=== PATIENT | male | born 2005 | race Two or more races ===

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

== ENCOUNTER 2024-07-11 10:39 | Emergency (ER) | payer MEDICAID, SELFPAY ==
[2024-07-11 10:45] VITALS: BP 152/84; PULSE 84; RESP 18; TEMP 36.7; O2SAT 99
--- NOTE | 2024-07-11 11:10 | ECG_ITS ---
Test Reason : ANXIOUS Blood Pressure : / mmHG Vent. Rate : 090 BPM Atrial Rate : 090 BPM P-R Int : 140 ms QRS Dur : 082 ms QT Int : 340 ms P-R-T Axes : 076 073 045 degrees QTc Int : 415 ms Normal sinus rhythm with sinus arrhythmia Early repolarization. No previous ECGs available Referred By: Samaria Mckeon Electronically Signed By:Bethel Godfrey
--- NOTE | 2024-07-11 11:20 | ED.PSYCH ---
HPI - Psych General Chief Complaint: Psychiatric Symptoms Stated Complaint: Crisis Time Seen by Provider: 07/11/24 10:54 Source: patient, family (mom) and legal executive (citizen of [place]) Mode of arrival: ambulatory Limitations: language barrier (citizen of [place] speaking) History of Present Illness ED Provider: ZANE MALDONADO PA-C HPI Narrative: 19 year old male with pmhx significant for anxiety presents to the ED today with his mother for evaluation of increased anxiety x24 hours. Admits he was recently hospitalized at [facility] (06/16/24) where he was prescribed anxiety medications. Reports feeling fine while taking the medication, prompting him to self discontinue his anxiety medications x2 days. He cannot recall the name of this medication. Admits to worsening anxiety. Denies SI/HI. Denies AH/VH/TH. Denies etoh use. Denies elicit substance use. Denies any physical complaints at present. Related Data Allergies Allergy/AdvReac Type Severity Reaction Status Date / Time shrimp Allergy Angioedema Verified 07/11/24 10:52 Review of Systems Review of Systems: Yes all other systems are reviewed and are negative [facility] Past Medical History Attestation statement: The following information was validated with the patient. Source: old records reviewed and nursing notes reviewed Social History Social History Smoked in Last 30 Days: No Use of substances other than those prescribed or required for medical reasons: No Advance Directives: No Advance Directives Information Provided: Yes Do you have a plan to hurt others: No Plan Physical Exam Vital Signs: Vital Signs: Last Vital Signs Temp 98.0 F 07/11/24 10:45 Pulse 75 07/11/24 11:37 Resp 16 07/11/24 11:37 BP 143/86 H 07/11/24 11:37 Pulse Ox 98 07/11/24 11:37 O2 Del Method Room Air 07/11/24 11:37 BMI result Body Mass Index 20.0 hypertensive, vitals otherwise wnl. General: Well appearing, in no acute distress. Skin: Warm, dry, intact. No rashes or lesions. Head: Normocephalic, atraumatic. EENT: Hearing is intact b/l. Conjunctiva clear. PERRLA. EOM intact. Moist mucous membranes.? Neck: Supple without LAD Cardiac: Chest wall symmetric. RRR Lungs: Normal respiratory effort without accessory muscle use. CTA bilaterally Abdomen: Soft, non-tender, non-distended. No rebound tenderness or guarding. Positive BS x4. Back: No midline spinous or paraspinal tenderness. No step off deformity. Ext: Upper and lower extremities atraumatic, without tenderness, deformity, swelling or erythema. Full ROM throughout. Neuro: AOx3. Normal speech. CN 2-12 grossly intact. Strength 5/5 intact throughout. Ambulating with steady gait. Psych: Appropriate mood and affect. Responds appropriately to questions. Course Course Course Narrative: 1205 -- On chart review, patient was prescribed benztropine 1mg daily, haloperidol 10 mg q.h.s., lithium 600 mg q.h.s., Zoloft 25 mg daily. > EKG showing normal sinus rhythm with sinus arrhythmia, rate of 90 beats per minute, QT 340, QTC 415, no acute ischemic changes or ST elevations. > CBC without leukocytosis or left shift. Slight normocytic anemia, H&H well above transfusion threshold. Chemistry without acute electrolyte abnormality requiring intervention. No DELIA. Slight elevation in AST/ALT. Lipase WNL. UA negative for infection. Urine toxicology negatve. Ethanol undetectable. Salicylates undetectable. > at this time, patient is medically cleared for care team evaluation. Physician observation initiated. 1354 -- Teresita from care team evaluated patient. Patient currently has a psychiatrist. He is currently being prescribed antipsychotic, was off these for 2 days and began taking them again this morning. Reports confusion as to why they have not started working yet. At this time we advised him to continue taking all of his home medications as prescribed. Yasmin will be giving him a referral to [facility] along with a 3 day follow-up with [facility]. Mom and patient feel comfortable with this plan. continues to deny SI/HI. At this time I feel patient is stable for discharge home with outpatient follow up. Patient has remained stable throughout ED visit today. Discussed worrisome signs and symptoms and when to return to the ED. All questions answered at this time. Patient is agreeable with disposition and stable for discharge. Observation care revealed that the patient does not meet medical necessity for hospitalization. Final disposition discussed with the patient. The patient completed observation care at 1355, total time in observation care was 2 hours. Medications Administered Discontinued Medications Generic Name Dose Route Start Last Admin Trade Name Deondre PRN Reason Stop Dose Admin Lorazepam 0.5 mg 07/11/24 12:52 07/11/24 13:11 Lorazepam 0.5 Mg Tablet PO 07/11/24 12:53 0.5 mg ONCE ONE Administration Medical Decision Making Medical Decision Making [facility] Narrative: 19 year old male with pmhx significant for anxiety presents to the ED today with his mother for evaluation of increased anxiety x24 hours. Patient is slightly hypertensive to 143/86. Vitals otherwise WNL. He is nontoxic-appearing and in no acute distress. Appears slightly anxious on exam, tapping his foot. Exam is nonfocal. ambulating with steady gait. rrr. lungs clear. skin w/d/i. no rashes, abrasions or lacerations. Differential diagnosis includes anxiety, depression, medication non compliance, anemia, electrolyte abnormality, dehydration. Plan for medical clearance and care team evaluation. Differential Diagnosis Differential Diagnoses: The differential diagnosis associated with the presentation includes As above Admission/Observation Consideration of admission/observation: Escalation of care including admission/observation considered Lab Data [facility] Lab Attestation statement: I reviewed the patient's lab results. As above 07/11/24 11:32 07/11/24 11:32 Labs: Lab Results 07/11/24 Range/Units 11:32 WBC 7.3 (4.8-10.8) X10*3/uL RBC 5.08 (4.60-5.80) X10*6/uL Hgb 13.6 L (14.0-18.0) g/dl Hct 41.5 L (42.0-52.0) % MCV 81.7 (80.0-98.0) fL MCH 26.8 L (27.0-33.0) pg MCHC 32.8 (31.0-36.0) g/dl RDW 14.2 (11.0-16.0) % Plt Count 325 (160-400) X10*3/uL MPV 8.9 L (9.4-12.4) fL Immature Gran % (Auto) 0.3 (0.0-0.4) % Neut % (Auto) 69.3 (45-73) % Lymph % (Auto) 21.0 (20-40) % [place] % (Auto) 7.3 (2-11) % Eos % (Auto) 1.6 (0-4) % Baso % (Auto) 0.5 (0-2) % Lymph # (Auto) 1.5 (1.2-4.9) X10*3/uL [place] # (Auto) 0.5 (0.1-1.2) X10*3/uL Eos # (Auto) 0.1 (0.0-0.4) X10*3/uL Baso # (Auto) 0.0 (0.0-0.2) X10*3/uL Abs Immat Gran (auto) 0.02 (0.00-0.03) X10*3/uL Absolute Neuts (auto) 5.1 (2.0-8.3) x10*3/uL Absolute Nucleated RBC 0.000 (0.0-0.012) X10*3/uL Nucleated RBC % (auto) 0.0 (0.0-0.2) /100WBC Sodium 140 (135-145) mmol/L Potassium 4.7 (3.3-5.1) mmol/L Chloride 107 (96-108) mmol/L Carbon Dioxide 26 (22-29) mmol/L Anion Gap 12 (12-20) BUN 10 (9-16) mg/dL Creatinine 0.82 (0.5-1.4) mg/dL Estim Creat Clear Calc 132.3 Estimated GFR > 60 Random Glucose 103 (60-115) mg/dL Calcium 10.4 H (8.4-10.2) mg/dL Magnesium 2.5 (1.6-2.6) mg/dL Total Bilirubin 0.3 (0.0-1.0) mg/dL AST 38 H (5-37) U/L ALT 65 H (0-40) U/L Alkaline Phosphatase 72 (39-117) U/L Total Protein 8.4 H (6.5-8.0) g/dL Albumin 4.9 (3.5-5.0) g/dL Lipase 11 (8-78) U/L Urine Color Yellow Urine Appearance Clear Urine pH 8.5 (5.0-9.0) Ur Specific [place] 1.010 (1.005-1.025) Urine Protein Negative (Neg-Trace) mg/dL Urine Glucose (UA) Negative (Negative) mg/dL Urine Ketones Negative (Negative) mg/dL Urine Blood Negative (Negative) Urine Nitrite Negative (Negative) Ur Leukocyte Esterase Negative (Negative) Salicylates < 5.0 L (15-30) mg/dL Urine Opiates Screen Not Detected (Not Detect) Ur Buprenorphine Scrn Not Detected (Not Detect) ng/mL Ur Oxycodone Screen Not Detected (Not Detect) ng/mL Urine Methadone Screen Not Detected (Not Detect) ng/mL Urine Fentanyl Screen Not Detected (Not Detect) Acetaminophen < 3 (<30) mcg/mL Ur Barbiturates Screen Not Detected (Not Detect) Ur Phencyclidine Scrn Not Detected (Not Detect) Ur Amphetamines Screen Not Detected (Not Detect) U Benzodiazepines Scrn Not Detected (Not Detect) Urine Cocaine Screen Not Detected (Not Detect) U Marijuana (THC) Screen Not Detected (Not Detect) Ethyl Alcohol < 10 mg/dL Independent Historian Clinical information obtained from an independent historian. History obtained from or confirmed by: Parent (Mom) Chronic Conditions Patient?s care impacted by: Other (Anxiety) Social Determinants Patient?s care significantly limited by Social Determinants of Health including: Other Social Determinant of Health Critical Care Time Critical Care Time Critical Care Time: No Discharge Plan Discharge Clinical Impression: Anxiety Patient Disposition: Home, Self-Care Instructions: Anxiety (ED) Additional Instructions: You were evaluated by care team today. You are being discharged home with outpatient follow-up. Please take all of your home medications as prescribed. Do not miss any doses. The care team provided you with a referral to [facility]. Call them for follow-up. They will not call you. Follow up with your psychiatrist as scheduled. Please return with new or worsening symptoms. In the case of an emergency call 911. Interventions: [place]-Suicide Risk Severity Scale Last Done: 07/11/24 11:09 Print Language: Uzbek
[2024-07-11 11:37] VITALS: BP 143/86; PULSE 75; RESP 16; O2SAT 98
[2024-07-11 11:39] LABS: MANUAL DIFF FLAG NO
[2024-07-11 11:42] LABS: Appearance Urine Clear; Color Urine Yellow; Glucose Urine UA Negative (Negative); Leukocyte Esterase Urine Negative (Negative); Nitrite Urine Negative (Negative); PH 8.5 (5.0-9.0); Urine Blood Negative (Negative); Urine Ketones Negative (Negative); Urine Protein Negative (Neg-Trace)
[2024-07-11 11:44] LABS: Basophils Percent Auto 0.5 % (0-2); Eosinophils Absolute Auto 0.1 X10*3/uL (0.0-0.4); Eosinophils Percent Auto 1.6 % (0-4); Hematocrit 41.5 % (42.0-52.0); Hemoglobin 13.6 g/dl (14.0-18.0); Imm Gran Abs Auto 0.02 X10*3/uL (0.00-0.03); Imm Gran Pct Auto 0.3 % (0.0-0.4); Lymphocytes Absolute Auto 1.5 X10*3/uL (1.2-4.9); Mean Corpuscular HGB Conc 32.8 g/dl (31.0-36.0); Mean Corpuscular Hemoglobin 26.8 pg (27.0-33.0); Mean Corpuscular Volume 81.7 fL (80.0-98.0); Mean Platelet Volume 8.9 fL (9.4-12.4); Monocytes Absolute Auto 0.5 X10*3/uL (0.1-1.2); Monocytes Percent Auto 7.3 % (2-11); Neutrophils Absolute Auto 5.1 x10*3/uL (2.0-8.3); Neutrophils Percent Auto 69.3 % (45-73); Platelet Count 325 X10*3/uL (160-400); Red Blood Count 5.08 X10*6/uL (4.60-5.80); Red Cell Distribution Width 14.2 % (11.0-16.0); White Blood Count 7.3 X10*3/uL (4.8-10.8)
[2024-07-11 12:03] LABS: Alanine Aminotransferase 65 U/L (0-40); Albumin Level 4.9 g/dL (3.5-5.0); Alkaline Phosphatase 72 U/L (39-117); Anion Gap 12 (12-20); Aspartate Amino Transferase 38 U/L (5-37); Bilirubin Total 0.3 mg/dL (0.0-1.0); Blood Urea Nitrogen 10 mg/dL (9-16); Calcium 10.4 mg/dL (8.4-10.2); Carbon Dioxide 26 mmol/L (22-29); Chloride 107 mmol/L (96-108); Creatinine Clr Calc Pharmacy 132.3; Estimated Glomerular Filt Rate > 60; Ethanol < 10 mg/dL; Glucose Random 103 mg/dL (60-115); Lipase 11 U/L (8-78); Magnesium 2.5 mg/dL (1.6-2.6); Potassium 4.7 mmol/L (3.3-5.1); Sodium 140 mmol/L (135-145); Total Protein 8.4 g/dL (6.5-8.0)
[2024-07-11 12:04] LABS: Acetaminophen LAB < 3 mcg/mL (<30); Salicylate < 5.0 mg/dL (15-30)
[2024-07-11 12:07] LABS: Amphetamine Screen Urine Not Detected (Not Detect); Barbiturates, Urine Not Detected (Not Detect); Benzodiazepines Screen Urine Not Detected (Not Detect); Buprenorphine Scr Not Detected (Not Detect); Cannabinoid Screen Urine Not Detected (Not Detect); Cocaine Screen Urine Not Detected (Not Detect); Fentanyl, urine Not Detected (Not Detect); Methadone Screen, Urine Not Detected (Not Detect); Opiate Screen Urine Not Detected (Not Detect); Oxycodone Screen Urine Not Detected (Not Detect); Phencyclidine Screen Urine Not Detected (Not Detect)
[2024-07-11] MEDS: LORazepam 0.5 MG TABLET PO (13:11)
[2024-07-11 14:11] VITALS: BP 143/86; PULSE 75; RESP 16; TEMP 36.7; O2SAT 98
--- NOTE | 2024-07-11 14:54 | MHC.CARE ---
Patient evaluated by the CARE Team, he does not require an inpatient psychiatric admission at this time, will be referred to outpatient services through [facility]. ED provider, Samaria Mckeon updated and in agreement with plan.
== END 2024-07-11 14:12 | disposition home or self-care (01) ==
PROVIDERS: Physician Assistant Medical; Emergency Provider Emergency Medicine
DX: F41.1 Generalized anxiety disorder (principal); F43.0 Acute stress reaction; I49.8 Other specified cardiac arrhythmias; Z51.81 Encounter for therapeutic drug level monitoring; Z79.899 Other long term (current) drug therapy
CPT/HCPCS: 36415; 80053; 80143; 80179; 80307; 81003; 83690; 83735; 85025; 93005; 99284; 99285; S9485

== ENCOUNTER → 2024-07-11 11:10 | Outpatient (BNV) | payer MEDICAID, SELFPAY | PROVIDERS: Emergency Provider Emergency Medicine; Visit Provider Internal Medicine Cardiovascular Disease | DX: I49.49 Other premature depolarization (principal) | CPT/HCPCS: 93010 ==

== ENCOUNTER 2024-07-19 14:35 | Outpatient (REF) | payer MEDICAID, SELFPAY ==
[2024-07-20 01:40] LABS: CT PCR NOT DETECTED (Not Detect.); NG PCR NOT DETECTED (Not Detect.)
== END 2024-07-19 14:36 | disposition home or self-care (01) ==
LOC: HO.CHCLNP 14:35
PROVIDERS: Visit Provider Family Medicine
DX: Z13.9 Encounter for screening, unspecified (principal)
CPT/HCPCS: 87491; 87591

== ENCOUNTER 2024-07-27 18:26 | Inpatient (IN) | payer MEDICAID, OTHER, SELFPAY ==
[2024-07-27 18:31] VITALS: BP 145/86; PULSE 84; RESP 16; TEMP 36.4; O2SAT 99; BMI 19.5
--- NOTE | 2024-07-27 18:35 | ED.PSYCH ---
HPI - Psych General Chief Complaint: Psychiatric Symptoms Stated Complaint: crisis Time Seen by Provider: 07/27/24 18:49 History of Present Illness HPI Narrative: See additional note from Dr. Carroll 07/27/24 Related Data Home Medications ?Medication ?Instructions ?Recorded ?Confirmed benztropine 1 mg tablet 1 mg PO DAILY 07/27/24 07/29/24 haloperidol 10 mg tablet 10 mg PO BEDTIME 07/27/24 07/27/24 lithium carbonate 600 mg capsule 600 mg PO BEDTIME 07/27/24 07/27/24 melatonin 3 mg tablet 3 mg PO BEDTIME PRN Insomnia 07/27/24 07/27/24 sertraline 25 mg tablet 25 mg PO DAILY 07/27/24 07/29/24 Allergies Allergy/AdvReac Type Severity Reaction Status Date / Time shrimp Allergy Angioedema Verified 07/27/24 18:40 [facility] Social History Social History Household Members: Spouse and Family Housing: Apartment Do you presently have visiting nurse or other home services: No Unable to assess alcohol history related to: Refusing to respond Patient Tobacco Use Status: Never used Tobacco Smoked in Last 30 Days: No e-Cigarette/Vaping Use: Never Used Patient Interested in Nicotine Replacement: No Patient Given Instructions on How to Stop Smoking: No Second Hand Smoke Exposure: No Use of substances other than those prescribed or required for medical reasons: No Currently Displaying Signs/Symptoms of Drug Intoxication Withdrawal: No Any prior treatment program specific to substance use: No Have you been hit, kicked, punched, or otherwise hurt by someone within the past year? If so, by whom?: No Do you feel safe in your current relationship?: No Is there a partner from a previous relationship who is making you feel unsafe now?: No Are you made to feel afraid or neglected: No Advance Directives: No Advance Directives Information Provided: Yes Do you have thoughts of harming others: None Do you have a plan to hurt others: No Plan Recently lost weight without trying: No Eating poorly because of decreased appetite: No Nutrition Risks: No Nutritional Risk Poor oral hygiene: No service: No Sexual orientation: Straight/Heterosexual Physical Exam Vital Signs: Vital Signs: Last Vital Signs Temp 97.7 F 07/30/24 07:37 Pulse 71 07/30/24 07:37 Resp 16 07/30/24 07:37 BP 142/76 H 07/30/24 07:37 Pulse Ox 98 07/30/24 07:37 O2 Del Method Room Air 07/30/24 07:37 BMI result Body Mass Index 19.5 Course Course Course Narrative: This is an RME performed by Zach Holloway CNP: Additional HPI, ROS, PE not included below will be deferred to primary provider. Patient is a 19-year-old male who presents emergency department with mother for evaluation, he states he wants to be voluntarily admitted to the hospital. He mentions seeing himself in a mirror as an alternative person, the reflexion in my eyes are black?, he can see the evil in other people's eyes . Denies SI, HI. For mother he has not been taking his medications for the past 2 days including; melatonin, lithium 600 mg daily, benztropine 1 mg daily, sertraline 25 mg daily, haloperidol 10 mg daily - patient states he stopped taking them because he was experiencing side effects including not wanting to have intercourse with his fiancee. He is coming from [facility] in [place]; I received a call from them, he was partially evaluated there for crisis, having tenriism preoccupations, auditory command hallucinations to harm his family, there was concern from them for possible substance usage, history of want a usage unclear whether there is anything else. Plan: Patient moved to [facility] for further evaluation, serum labs, care team evaluation Medications Administered Generic Name Dose Route Start Last Admin Trade Name Freq PRN Reason Stop Dose Admin Benztropine Mesylate 1 mg 07/28/24 09:00 07/30/24 08:16 Benztropine Mesylate 1 Mg Tablet PO 1 mg DAILY CELESTINA Administration Haloperidol 10 mg 07/27/24 22:15 07/29/24 20:49 Haloperidol 5 Mg Tablet PO 10 mg BEDTIME CELESTINA Administration [place] Carbonate 600 mg 07/27/24 22:15 07/29/24 20:49 [place] Carbonate 300 Mg Capsule PO 600 mg BEDTIME CELESTINA Administration Melatonin 3 mg 07/27/24 22:06 07/28/24 22:36 Melatonin 3 Mg Tablet PO 3 mg BEDTIME PRN Administration Insomnia Sertraline HCl 25 mg 07/28/24 09:00 07/30/24 08:16 Sertraline Hcl 25 Mg Tablet PO 25 mg DAILY CELESTINA Administration Discontinued Medications Generic Name Dose Route Start Last Admin Trade Name Deondre PRN Reason Stop Dose Admin Diphenhydramine HCl 50 mg 07/28/24 00:49 07/28/24 00:53 Diphenhydramine Hcl 25 Mg Capsule PO 07/28/24 00:50 50 mg ONCE ONE Administration Lorazepam 2 mg 07/28/24 00:49 07/28/24 00:53 Lorazepam 1 Mg Tablet PO 07/28/24 00:50 2 mg ONCE ONE Administration Lorazepam 1 mg 07/29/24 12:09 07/29/24 12:36 Lorazepam 1 Mg Tablet PO 07/29/24 12:10 1 mg ONCE ONE Administration Ziprasidone 20 mg 07/28/24 00:49 07/28/24 00:53 Ziprasidone 20 Mg Capsule PO 07/28/24 00:50 20 mg ONCE ONE Administration Medical Decision Making Lab Data 07/27/24 19:07 07/30/24 08:32 Labs: Lab Results 07/27/24 07/29/24 Range/Units 19:07 16:05 WBC 7.2 (4.8-10.8) X10*3/uL RBC 4.77 (4.60-5.80) X10*6/uL Hgb 12.7 L (14.0-18.0) g/dl Hct 38.4 L (42.0-52.0) % MCV 80.5 (80.0-98.0) fL MCH 26.6 L (27.0-33.0) pg MCHC 33.1 (31.0-36.0) g/dl RDW 13.5 (11.0-16.0) % Plt Count 284 (160-400) X10*3/uL MPV 8.9 L (9.4-12.4) fL Immature Gran % (Auto) 0.1 (0.0-0.4) % Neut % (Auto) 62.6 (45-73) % Lymph % (Auto) 26.5 (20-40) % [place] % (Auto) 9.6 (2-11) % Eos % (Auto) 0.8 (0-4) % Baso % (Auto) 0.4 (0-2) % Lymph # (Auto) 1.9 (1.2-4.9) X10*3/uL [place] # (Auto) 0.7 (0.1-1.2) X10*3/uL Eos # (Auto) 0.1 (0.0-0.4) X10*3/uL Baso # (Auto) 0.0 (0.0-0.2) X10*3/uL Abs Immat Gran (auto) 0.01 (0.00-0.03) X10*3/uL Absolute Neuts (auto) 4.5 (2.0-8.3) x10*3/uL Absolute Nucleated RBC 0.000 (0.0-0.012) X10*3/uL Nucleated RBC % (auto) 0.0 (0.0-0.2) /100WBC Sodium 141 (135-145) mmol/L Potassium 4.0 (3.3-5.1) mmol/L Chloride 110 H (96-108) mmol/L Carbon Dioxide 22 (22-29) mmol/L Anion Gap 13 (12-20) BUN 14 (9-16) mg/dL Creatinine 0.78 (0.5-1.4) mg/dL Estim Creat Clear Calc 131.8 Estimated GFR > 60 Random Glucose 134 H (60-115) mg/dL Calcium 9.8 (8.4-10.2) mg/dL Total Bilirubin 0.2 (0.0-1.0) mg/dL AST 26 (5-37) U/L ALT 22 (0-40) U/L Alkaline Phosphatase 66 (39-117) U/L Total Protein 8.2 H (6.5-8.0) g/dL Albumin 4.8 (3.5-5.0) g/dL Urine Color Yellow Urine Appearance Cloudy Urine pH 6.5 (5.0-9.0) Ur Specific [place] 1.015 (1.005-1.025) Urine Protein Negative (Neg-Trace) mg/dL Urine Glucose (UA) Negative (Negative) mg/dL Urine Ketones Negative (Negative) mg/dL Urine Blood Negative (Negative) Urine Nitrite Negative (Negative) Ur Leukocyte Esterase Trace H (Negative) Urine RBC 0-2 (0-2) /HPF Urine WBC 0-5 (0-5) /HPF Ur Squamous Epith Cells 0-2 (0-2) /HPF Urine Bacteria None Seen (None Seen) Hyaline Casts 0-2 (0-2) /LPF Urine Opiates Screen Not Detected (Not Detect) Ur Buprenorphine Scrn Not Detected (Not Detect) ng/mL Ur Oxycodone Screen Not Detected (Not Detect) ng/mL Urine Methadone Screen Not Detected (Not Detect) ng/mL Urine Fentanyl Screen Not Detected (Not Detect) Ur Barbiturates Screen Not Detected (Not Detect) Ur Phencyclidine Scrn Not Detected (Not Detect) Ur Amphetamines Screen Not Detected (Not Detect) U Benzodiazepines Scrn Not Detected (Not Detect) [place] < 0.10 L (0.60-1.20) mmol/L Urine Cocaine Screen Not Detected (Not Detect) U Marijuana (THC) Screen Not Detected (Not Detect) Ethyl Alcohol < 10 mg/dL Discharge Plan Discharge Clinical Impression: Delusion, Psychosis Patient Disposition: Still a Patient Discharge Date/Time: 07/29/24 22:09
--- NOTE | 2024-07-27 18:43 | PC.NURSE ---
pt reports he has not taken his meds x2 days because he felt like he does not need them any more and they make him not want to have intercourse with his GF
[2024-07-27 19:11] LABS: MANUAL DIFF FLAG NO
[2024-07-27 19:12] LABS: Basophils Percent Auto 0.4 % (0-2); Eosinophils Absolute Auto 0.1 X10*3/uL (0.0-0.4); Eosinophils Percent Auto 0.8 % (0-4); Hematocrit 38.4 % (42.0-52.0); Hemoglobin 12.7 g/dl (14.0-18.0); Imm Gran Abs Auto 0.01 X10*3/uL (0.00-0.03); Imm Gran Pct Auto 0.1 % (0.0-0.4); Lymphocytes Absolute Auto 1.9 X10*3/uL (1.2-4.9); Lymphocytes Percent Auto 26.5 % (20-40); Mean Corpuscular HGB Conc 33.1 g/dl (31.0-36.0); Mean Corpuscular Hemoglobin 26.6 pg (27.0-33.0); Mean Corpuscular Volume 80.5 fL (80.0-98.0); Mean Platelet Volume 8.9 fL (9.4-12.4); Monocytes Absolute Auto 0.7 X10*3/uL (0.1-1.2); Monocytes Percent Auto 9.6 % (2-11); Neutrophils Absolute Auto 4.5 x10*3/uL (2.0-8.3); Neutrophils Percent Auto 62.6 % (45-73); Platelet Count 284 X10*3/uL (160-400); Red Blood Count 4.77 X10*6/uL (4.60-5.80); Red Cell Distribution Width 13.5 % (11.0-16.0); White Blood Count 7.2 X10*3/uL (4.8-10.8)
[2024-07-27 19:22] LABS: Lithium < 0.10 mmol/L (0.60-1.20)
[2024-07-27 19:29] LABS: Alanine Aminotransferase 22 U/L (0-40); Albumin Level 4.8 g/dL (3.5-5.0); Alkaline Phosphatase 66 U/L (39-117); Anion Gap 13 (12-20); Aspartate Amino Transferase 26 U/L (5-37); Bilirubin Total 0.2 mg/dL (0.0-1.0); Blood Urea Nitrogen 14 mg/dL (9-16); Calcium 9.8 mg/dL (8.4-10.2); Carbon Dioxide 22 mmol/L (22-29); Chloride 110 mmol/L (96-108); Creatinine Clr Calc Pharmacy 131.8; Estimated Glomerular Filt Rate > 60; Ethanol < 10 mg/dL; Glucose Random 134 mg/dL (60-115); Sodium 141 mmol/L (135-145); Total Protein 8.2 g/dL (6.5-8.0)
--- NOTE | 2024-07-27 19:31 | PC.NURSE ---
[id number] allegedly the meds may be impeding the libido, and they wonder about changing medications, i dont want to presume about anything but under normal circumstance i would figure thats a your own psychiatrist or inpatient stay
--- NOTE | 2024-07-27 22:10 | ED_ITS ---
HPI - Psych General Chief Complaint: Psychiatric Symptoms Stated Complaint: crisis Time Seen by Provider: 07/27/24 18:49 Source: patient Mode of arrival: ambulatory Limitations: no limitations History of Present Illness ED Provider: Dr. Jackie Carroll HPI Narrative: Patient comes to the emergency room accompanied by family. According to the patient, patient is here because he has had mood swings and insomnia. Also, patient complaining of decreased libido secondary to his medications. Patient states that he is having a lot of relationship problems due to this. Also, patient states that he can see able in people's eyes and believes that he has a secret of the government . Patient denies SI or HI Related Data Home Medications ?Medication ?Instructions ?Recorded ?Confirmed benztropine 1 mg tablet 1 mg PO QAM 07/27/24 07/27/24 haloperidol 10 mg tablet 10 mg PO BEDTIME 07/27/24 07/27/24 lithium carbonate 600 mg capsule 600 mg PO BEDTIME 07/27/24 07/27/24 melatonin 3 mg tablet 3 mg PO BEDTIME PRN Insomnia 07/27/24 07/27/24 sertraline 25 mg tablet 25 mg PO QAM 07/27/24 07/27/24 Allergies Allergy/AdvReac Type Severity Reaction Status Date / Time shrimp Allergy Angioedema Verified 07/27/24 18:40 Review of Systems 2 Review of Systems: Constitutional : No Weight loss, No Fever, No Chills, No Night Sweats, No Fatigue, No Malaise ENT/Mouth : No Hearing loss, No Ear Pain, No Nasal Congestion, No Sinus Pain, No Hoarseness, No sore throat, No Rhinorrhea, No Swallowing Difficulty Eyes: No Eye Pain, No Swelling, No Redness, No Foreign Body, No Discharge, No Vision Changes Cardiovascular : No Chest Pain, No SOB, No Dyspnea on Exertion, No Orthopnea, No Edema, No Palpitations Respiratory : No Cough, No Sputum, No Wheezing, No Smoke Exposure, No Dyspnea Gastrointestinal : No Nausea, No Vomiting, No Diarrhea, No Constipation, No abdominal Pain, No Hematochezia, No Melena Genitourinary : no irregular bleeding, No Dysuria, No Urinary Frequency, No Hematuria, No Urinary Incontinence, No Urgency, No Flank Pain, No Urinary Flow Changes, No Hesitancy Musculoskeletal : No joint pain, No Myalgias, No Joint Swelling Skin : No Skin Lesions, No rash Neuro : No Weakness, No Numbness, No Paresthesias, No Loss of Consciousness, No Dizziness, No Headache Psych : Complaining of insomnia, mood swings, decreased libido, seems paranoid Heme/Lymph: No Bruising, No Bleeding,No Lymphadenopathy Endocrine : No Polyuria, No Polydipsia, No Temperature Intolerance PMFSH Social History Social History Advance Directives: No Advance Directives Information Provided: Yes Do you have a plan to hurt others: No Plan Physical Exam 2 Vital Signs: Vital Signs: Last Vital Signs Temp 97.6 F 07/27/24 18:31 Pulse 84 07/27/24 18:31 Resp 16 07/27/24 18:31 BP 145/86 H 07/27/24 18:31 Pulse Ox 99 07/27/24 18:31 O2 Del Method Room Air 07/27/24 18:31 BMI result Body Mass Index 19.5 Const: Other: Appearance: Alert. Oriented X3. No acute distress. Eyes: Pupils equal, round and reactive to light. ENT: Pharynx normal. Neck: Normal inspection. Neck supple. No lymph nodes noted. No crepitus CVS: Normal heart rate and rhythm. Pulses normal. Normal S1 and S2 Respiratory: No respiratory distress. Breath sounds normal. No Wheezing. No rales Abdomen: Soft and nontender. No rigidity. No distention. Skin: Skin warm and dry. Normal skin color. Normal skin turgor. Extremities: No lower extremity edema. No Lacerations. No Rash Neuro: Oriented X 3. No motor deficit. No sensory deficit. Moving all extremities. No slurred speech. CN 2 through 12 grossly intact Psych: cooperative, inappropriate laughter at times. Patient lives at nothing, throws himself in the ground and keeps laughing. Patient redirectable, patient is not aggressive or combative. Medications Administered Generic Name Dose Route Start Last Admin Trade Name Freq PRN Reason Stop Dose Admin Haloperidol 10 mg 07/27/24 22:15 07/28/24 00:16 Haloperidol 5 Mg Tablet PO 10 mg BEDTIME CELESTINA Administration [place] Carbonate 600 mg 07/27/24 22:15 07/28/24 00:16 [place] Carbonate 300 Mg Capsule PO 600 mg BEDTIME CELESTINA Administration Melatonin 3 mg 07/27/24 22:06 07/27/24 22:50 Melatonin 3 Mg Tablet PO 3 mg BEDTIME PRN Administration Insomnia Discontinued Medications Generic Name Dose Route Start Last Admin Trade Name Deondre PRN Reason Stop Dose Admin Diphenhydramine HCl 50 mg 07/28/24 00:49 07/28/24 00:53 Diphenhydramine Hcl 25 Mg Capsule PO 07/28/24 00:50 50 mg ONCE ONE Administration Lorazepam 2 mg 07/28/24 00:49 07/28/24 00:53 Lorazepam 1 Mg Tablet PO 07/28/24 00:50 2 mg ONCE ONE Administration Ziprasidone 20 mg 07/28/24 00:49 07/28/24 00:53 Ziprasidone 20 Mg Capsule PO 07/28/24 00:50 20 mg ONCE ONE Administration Medical Decision Making Medical Decision Making [facility] Narrative: My interpretation of labs: Hematology and chemistry at baseline, lithium levels subtherapeutic, ETOH negative -patient has not provided a urine sample. -per care team, patient was seen by [facility], patient is an inpatient bed search. -patient keeps throwing himself on the ground and labs. Patient is not self- harming. Patient was given p.o. medications, seemed to work well. Patient, cooperative Differential Diagnosis Differential Diagnoses: The differential diagnosis associated with the presentation includes (Schizophrenia, paranoid, psychosis) Admission/Observation Consideration of admission/observation: Escalation of care including admission/observation considered (Patient will need inpatient level of care.) Lab Data [facility] Lab Attestation statement: I reviewed the patient's lab results. 07/27/24 19:07 07/27/24 19:07 Labs: Lab Results 07/27/24 Range/Units 19:07 WBC 7.2 (4.8-10.8) X10*3/uL RBC 4.77 (4.60-5.80) X10*6/uL Hgb 12.7 L (14.0-18.0) g/dl Hct 38.4 L (42.0-52.0) % MCV 80.5 (80.0-98.0) fL MCH 26.6 L (27.0-33.0) pg MCHC 33.1 (31.0-36.0) g/dl RDW 13.5 (11.0-16.0) % Plt Count 284 (160-400) X10*3/uL MPV 8.9 L (9.4-12.4) fL Immature Gran % (Auto) 0.1 (0.0-0.4) % Neut % (Auto) 62.6 (45-73) % Lymph % (Auto) 26.5 (20-40) % [place] % (Auto) 9.6 (2-11) % Eos % (Auto) 0.8 (0-4) % Baso % (Auto) 0.4 (0-2) % Lymph # (Auto) 1.9 (1.2-4.9) X10*3/uL [place] # (Auto) 0.7 (0.1-1.2) X10*3/uL Eos # (Auto) 0.1 (0.0-0.4) X10*3/uL Baso # (Auto) 0.0 (0.0-0.2) X10*3/uL Abs Immat Gran (auto) 0.01 (0.00-0.03) X10*3/uL Absolute Neuts (auto) 4.5 (2.0-8.3) x10*3/uL Absolute Nucleated RBC 0.000 (0.0-0.012) X10*3/uL Nucleated RBC % (auto) 0.0 (0.0-0.2) /100WBC Sodium 141 (135-145) mmol/L Potassium 4.0 (3.3-5.1) mmol/L Chloride 110 H (96-108) mmol/L Carbon Dioxide 22 (22-29) mmol/L Anion Gap 13 (12-20) BUN 14 (9-16) mg/dL Creatinine 0.78 (0.5-1.4) mg/dL Estim Creat Clear Calc 131.8 Estimated GFR > 60 Random Glucose 134 H (60-115) mg/dL Calcium 9.8 (8.4-10.2) mg/dL Total Bilirubin 0.2 (0.0-1.0) mg/dL AST 26 (5-37) U/L ALT 22 (0-40) U/L Alkaline Phosphatase 66 (39-117) U/L Total Protein 8.2 H (6.5-8.0) g/dL Albumin 4.8 (3.5-5.0) g/dL [place] < 0.10 L (0.60-1.20) mmol/L Ethyl Alcohol < 10 mg/dL Critical Care Time Critical Care Time Critical Care Time: Yes Total Critical Care Time: 30 Attestation: I have personally provided critical care time. Time includes review of lab data, radiology results, discussion with consultants, and monitoring for potential decompensation. Intervention performed as documented. Discharge Plan Discharge Clinical Impression: Delusion, Psychosis Patient Disposition: Still a Patient Prescriptions: No Action melatonin 3 mg tablet 3 mg PO BEDTIME PRN (Reason: Insomnia) lithium carbonate 600 mg capsule 600 mg PO BEDTIME haloperidol 10 mg tablet 10 mg PO BEDTIME benztropine 1 mg tablet 1 mg PO QAM sertraline 25 mg tablet 25 mg PO QAM Interventions: [place]-Suicide Risk Severity Scale Last Done: 07/27/24 20:42 Print Language: Bruneian
[2024-07-27] MEDS: Melatonin 3 MG TABLET PO (22:50)
--- NOTE | 2024-07-27 23:25 | PC.NURSE ---
patient pacing, some paranoid tinged thought process, got automotive parts interpreter lays on floor, suspicious thinks we know his family at home, etc.
--- NOTE | 2024-07-27 23:50 | PC.NURSE ---
last 15 minutes have been spent following staff, intrusive, laying on floor, not following directions overall negative attention seeking behaviors.
--- NOTE | 2024-07-27 23:53 | PC.NURSE ---
client came out to review the time, [id number]
--- NOTE | 2024-07-27 23:56 | PC.NURSE ---
patient completed the five minutes asked and soon thereafter came back up to nurses station, asking to see :matilde movie, etc. patient was provided with 2 sandwiches, juices, jello. jackson crackers.
--- NOTE | 2024-07-28 00:02 | PC.NURSE ---
patient continues to try and antagonize staff and not follow directions, continued pressured speech, intrusiveness staring at staff.
--- NOTE | 2024-07-28 00:06 | PC.NURSE ---
continues to talk at staff MY FATHER UNDERSTANDS ME
--- NOTE | 2024-07-28 00:07 | PC.NURSE ---
client plays 'peek a puentes' with staff in front of nurses station not following directions.
--- NOTE | 2024-07-28 00:10 | PC.NURSE ---
i am famous ... and seemingly disappointed when persons dont pay attn to his neg attn seek behaviors. hs medications encouraged.
[2024-07-28] MEDS: Lithium Carbonate 300 MG CAPSULE 600 MG PO ×3 (00:16→22:35)
[2024-07-28] MEDS: HaloperidoL 5 MG TABLET 10 MG PO ×3 (00:16→22:35)
--- NOTE | 2024-07-28 00:23 | PC.NURSE ---
patient finally took meds
--- NOTE | 2024-07-28 00:26 | PC.NURSE ---
continued intrusiveness, talking at staff.
--- NOTE | 2024-07-28 00:33 | PC.NURSE ---
oatient escalates to climbing on furniture
--- NOTE | 2024-07-28 00:48 | PC.NURSE ---
once security leaves pod patient comes over to rn station and lays on floor
[2024-07-28] MEDS: diphenhydrAMINE HCL 25 MG CAPSULE 50 MG PO (00:53)
[2024-07-28] MEDS: Ziprasidone 20 MG CAPSULE PO (00:53)
[2024-07-28] MEDS: LORazepam 1 MG TABLET 2 MG PO (00:53)
--- NOTE | 2024-07-28 03:06 | PC.NURSE ---
late entry-provider came to pod and spoke to client encouraged him to head to room, oredered some po meds which he took and soon thereafter adjourned to bed.
[2024-07-28 13:43] VITALS: BP 141/83; PULSE 82; RESP 18; TEMP 36.7; O2SAT 97
--- NOTE | 2024-07-28 20:10 | MHC.EDTECH ---
This tech attempted to obtain urine sample from pt at this time.
[2024-07-28 21:59] VITALS: RESP 18
[2024-07-28] MEDS: Melatonin 3 MG TABLET PO (22:36)
--- NOTE | 2024-07-28 22:36 | PC.NURSE ---
T?w has to adminsiter night medications as unscheduled as previous rn charted for future admin instead of unscheduled
[2024-07-28 22:40] VITALS: BP 120/72; PULSE 72; RESP 16; TEMP 36.8; O2SAT 98
--- NOTE | 2024-07-29 | ECG_ITS ---
Test Reason : check qtc prolongation Blood Pressure : / mmHG Vent. Rate : 083 BPM Atrial Rate : 083 BPM P-R Int : 140 ms QRS Dur : 084 ms QT Int : 362 ms P-R-T Axes : 079 080 050 degrees QTc Int : 425 ms Normal sinus rhythm with sinus arrhythmia Normal ECG When compared with ECG of 11-JUL-2024 11:25, No significant change was found Referred By: Jackie Carroll Electronically Signed By:Bethel Godfrey
--- NOTE | 2024-07-29 07:22 | PC.NURSE ---
Assumed care of patient at 0645, patient appears to be sleeping, respirations even and unlabored, no apparent distress noted. Continue plan of care for inpatient bedsearch at this time
[2024-07-29 07:29] VITALS: BP 118/80; PULSE 100; RESP 16; TEMP 36.7; O2SAT 98
--- NOTE | 2024-07-29 08:00 | PC.NURSE ---
Patient refusing to give urine sample at this time, requesting to speak with doctor. patient is unwilling to tell this RN why he wants to speak with the doctor. MD Nice aware
[2024-07-29] MEDS: Sertraline HCL 25 MG TABLET PO (08:03)
[2024-07-29] MEDS: Benztropine Mesylate 1 MG TABLET PO (08:03)
--- NOTE | 2024-07-29 10:55 | PC.NURSE ---
Patient sitting at table in common area, coloring, offering no complaints to this RN at this time
--- NOTE | 2024-07-29 11:56 | PC.NURSE ---
Pt is reporting increased anxiousness and agitation. Requesting medication to help calm him down. MD Nice made aware via tiger text at 1156, no answer at this time
[2024-07-29] MEDS: LORazepam 1 MG TABLET PO (12:36)
--- NOTE | 2024-07-29 13:24 | PHA.MEDREC ---
Addendum entered by Sandra Pastrana RPh 07/29/24 13:26: reviewed by [facility]. Original Note: Pharmacy Consult ? Medication Reconciliation Pharmacy has reviewed the medication reconciliation done by nursing. Claims match med list.
[2024-07-29 15:58] VITALS: BP 127/68; PULSE 80; RESP 16; TEMP 36.9; O2SAT 97
[2024-07-29 16:19] LABS: Appearance Urine Cloudy; Color Urine Yellow; Glucose Urine UA Negative (Negative); Leukocyte Esterase Urine Trace (Negative); Nitrite Urine Negative (Negative); PH 6.5 (5.0-9.0); Specific Gravity - Urine 1.015 (1.005-1.025); UMIC TRIGGER UACC YES; Urine Blood Negative (Negative); Urine Ketones Negative (Negative); Urine Protein Negative (Neg-Trace)
[2024-07-29 16:22] LABS: Amphetamine Screen Urine Not Detected (Not Detect); Bacteria Urine None Seen (None Seen); Barbiturates, Urine Not Detected (Not Detect); Benzodiazepines Screen Urine Not Detected (Not Detect); Buprenorphine Scr Not Detected (Not Detect); Cannabinoid Screen Urine Not Detected (Not Detect); Cocaine Screen Urine Not Detected (Not Detect); Fentanyl, urine Not Detected (Not Detect); Hyaline Casts Urine 0-2 /LPF (0-2); Methadone Screen, Urine Not Detected (Not Detect); Opiate Screen Urine Not Detected (Not Detect); Oxycodone Screen Urine Not Detected (Not Detect); Phencyclidine Screen Urine Not Detected (Not Detect); RBC Urine 0-2 /HPF (0-2); Squamous Epithelial Cell Urine 0-2 /HPF (0-2); WBC Urine 0-5 /HPF (0-5)
--- NOTE | 2024-07-29 18:40 | PC.NURSE ---
Pt has family visiting at this time, pt reports to this RN that he is happy they are visiting
--- NOTE | 2024-07-29 20:05 | PC.NURSE ---
Patients family left at this time. Patient questioning bed placement for the night, explained that maybe tomorrow he would move/transition upstairs but it is not for sure. Patient tolerated news well and is now relaxing in room.
[2024-07-29] MEDS: HaloperidoL 5 MG TABLET 10 MG PO (20:49)
[2024-07-29] MEDS: Lithium Carbonate 300 MG CAPSULE 600 MG PO (20:49)
--- NOTE | 2024-07-29 21:53 | PC.NURSE ---
Report given to M3, security notified, belongings obtained from locker. Room assignment on M3 will be [phone]
[2024-07-29 22:15] VITALS: BP 136/75; PULSE 88; RESP 16; TEMP 36.8; O2SAT 99
[2024-07-29 23:18] VITALS: BMI 19.6
--- NOTE | 2024-07-30 00:54 | PC.ADMIT ---
Pt is a 19yo [place]ian speaking male, admitted from [facility] on a CV for treatment of paranoid and AH. Pt and mom presented to ED with paranoia and he was religiously preoccupied. Pt reported seeing evil in people's eyes and hearing footsteps . Pt believes that he was been recorded by phones, feels his life is a movies and has made a deal with god. On unit assessment, Pt required the services of an electrifier operator. He was calm but not cooperative and got agitated during the admission process. He endorses hearing strange voices and seeing things around him, denies SI/HI. He signed/filled some release forms, menu and statements of understanding. Safety/skin check and v/s done. Treatment plan and safety tools initiated but yet to be signed. He was placed on 15 minutes safety check.
[2024-07-30 07:37] VITALS: BP 142/76; PULSE 71; RESP 16; TEMP 36.5; O2SAT 98
[2024-07-30] MEDS: Sertraline HCL 25 MG TABLET PO (08:16)
[2024-07-30] MEDS: Benztropine Mesylate 1 MG TABLET PO (08:16)
[2024-07-30 09:29] LABS: Estimated Average Glucose 105 mg/dL; Hemoglobin A1C 125.5041 umol/L; Hemoglobin A1c % 5.3 % (<6.0); Total Hemoglobin (HGBA1C) 3676.7053 umol/L
--- NOTE | 2024-07-30 09:39 | P.HPPS_ITS ---
HPI Date of Service: 07/30/24 Chief Complaint: decompensation Sources of Information: patient interviewed, chart reviewed and crisis/core team assessment reviewed HPI Subjective Notes: Patel Warning and Conditional Voluntary Narrative: Patient is a 19-year-old male with history of schizoaffective disorder who was assessed by [facility] crisis secondary to his mother calling requesting an assessment due to increased paranoia. Per crisis report, patient reports he feels he is being recorded by phones, cameras and the microwave. He feels though he is life is a movie. Patient's mother reports he has seemed off the last few days as he has had difficulty sleeping and trouble engaging. Patient reported that on 06/12/2024 he was traveling to [place] from [place] and he had a layover in [place], and while he was in the airport he opened a secure door which resulted in him being arrested. Patient reported that he felt he released a demon when he opened the door and that the demon had been controlling his life. Patient's mother reports that patient has been noncompliant with his medications for a few days. During admission assessment, real estate firm manager present. Patient presents alert and oriented x3, calm and cooperative. Patient stated, I feel confused about life because I see malice in the eyes of people. I feel like telephones are listening to me and that I am a secret of the government. I want to see people normally. The meds were making me feel like a robot and were taking away my sexual appetite . Patient reports he has not been taking his medications for about 4 days. He denies SI/HI/VH/AH at this time. He does report he was having visual hallucinations of people having red eyes. Past Psychiatric History: Patient was admitted psychiatrically at [facility] from 06/16/2024 to 06/24/2024. Patient has outpatient providers through [facility]. Medical Evaluation Reviewed: Yes [facility] Family History: Unknown Social History: Lives with mother and girlfriend. No kids. High school diploma. Unemployed. Substance History: Patient reports smoking marijuana. Denies any other substance use. U tox negative for any substances. Trauma History: Did not discuss Diagnostics Vital Signs (24Hr): Vital Signs - 24 hr 07/29/24 15:58 07/29/24 22:15 07/30/24 07:37 Temperature 98.4 F 98.3 F 97.7 F Pulse Rate 80 88 71 Respiratory Rate 16 16 16 Blood Pressure 127/68 136/75 142/76 H Pulse Oximetry 97 99 98 Oxygen Delivery Method Room Air Room Air Room Air BMI result Body Mass Index 19.6 Labs 07/27/24 19:07 07/30/24 08:32 Labs: Laboratory Results - last 48 hr 07/29/24 07/30/24 16:05 08:32 Estimat Average Glucose 105 Hemoglobin A1c % 5.3 Urine Color Yellow Urine Appearance Cloudy Urine pH 6.5 Ur Specific [place] 1.015 Urine Protein Negative Urine Glucose (UA) Negative Urine Ketones Negative Urine Blood Negative Urine Nitrite Negative Ur Leukocyte Esterase Trace H Urine RBC 0-2 Urine WBC 0-5 Ur Squamous Epith Cells 0-2 Urine Bacteria None Seen Hyaline Casts 0-2 Urine Opiates Screen Not Detected Ur Buprenorphine Scrn Not Detected Ur Oxycodone Screen Not Detected Urine Methadone Screen Not Detected Urine Fentanyl Screen Not Detected Ur Barbiturates Screen Not Detected Ur Phencyclidine Scrn Not Detected Ur Amphetamines Screen Not Detected U Benzodiazepines Scrn Not Detected Urine Cocaine Screen Not Detected U Marijuana (THC) Screen Not Detected Meds/Allergies Meds Home Medications ?Medication ?Instructions ?Recorded ?Confirmed ?Type benztropine 1 mg tablet 1 mg PO DAILY 07/27/24 07/29/24 History haloperidol 10 mg tablet 10 mg PO BEDTIME 07/27/24 07/27/24 History lithium carbonate 600 mg capsule 600 mg PO BEDTIME 07/27/24 07/27/24 History melatonin 3 mg tablet 3 mg PO BEDTIME PRN Insomnia 07/27/24 07/27/24 History sertraline 25 mg tablet 25 mg PO DAILY 07/27/24 07/29/24 History Allergies Allergies Allergy/AdvReac Type Severity Reaction Status Date / Time shrimp Allergy Angioedema Verified 07/27/24 18:40 Mental Status Exam Mental Status Exam Narrative: Pt is alert and oriented; behavior is cooperative, calm; dressed in casual attire; mood is described as anxious ; eye contact appropriate; Speech is normal rate, volume and not pressured; thought process is organized and goal directed; Thought content is on tx; paranoid and grandiose; denies SI/HI/VH/AH. Assessment & Plan Assessment & Plan (1) Schizoaffective disorder: Status: Acute Code(s): F25.9 - Schizoaffective disorder, unspecified Plan Patient is a 19-year-old male with history of schizoaffective disorder who was assessed by [facility] crisis secondary to his mother calling requesting an assessment due to increased paranoia. Plan: CV 15 minute safety checks Continue home medications Encourage groups Obtain collateral Discharge planning Patient educated on: diagnosis and medication risk/benefits Reason for continued inpatient stay Substantial Risk for: med/psych decompensation Statement Statement: I have reviewed the history and physical and performed a pertinent examination on my patient. No changes have occurred unless specified. If the History and Physical was not performed prior to admission, the Hospitalist's service will be consulted for completing the admission physical. Time Spent With Patient Time: Total time managing care of this patient today _60___ minutes.
[2024-07-30 09:44] LABS: Alanine Aminotransferase 25 U/L (0-40); Albumin Level 4.8 g/dL (3.5-5.0); Alkaline Phosphatase 70 U/L (39-117); Anion Gap 12 (12-20); Aspartate Amino Transferase 21 U/L (5-37); Bilirubin Direct 0.2 mg/dL (0.0-0.5); Bilirubin Total 0.6 mg/dL (0.0-1.0); Blood Urea Nitrogen 13 mg/dL (9-16); Carbon Dioxide 29 mmol/L (22-29); Chloride 102 mmol/L (96-108); Estimated Glomerular Filt Rate > 60; Glucose Fasting 102 mg/dL (60-99); Potassium 4.3 mmol/L (3.3-5.1); Sodium 139 mmol/L (135-145); Total Protein 8.4 g/dL (6.5-8.0)
[2024-07-30 10:00] LABS: TSH reflex Free T4 1.39 uIU/mL (0.32-4.0)
[2024-07-30 19:59] VITALS: BP 123/79; PULSE 79; RESP 16; TEMP 36.8; O2SAT 100
[2024-07-30] MEDS: HaloperidoL 5 MG TABLET 10 MG PO (21:12)
[2024-07-30] MEDS: Lithium Carbonate 300 MG CAPSULE 600 MG PO (21:12)
[2024-07-31 07:20] VITALS: BP 120/60; PULSE 91; RESP 16; TEMP 36.7; O2SAT 97
[2024-07-31] MEDS: Benztropine Mesylate 1 MG TABLET PO ×2 (08:55→21:47)
[2024-07-31] MEDS: Sertraline HCL 25 MG TABLET PO (08:55)
--- NOTE | 2024-07-31 09:03 | P.PNPSI_ITS ---
Subjective Subjective Date of Service: 07/31/24 Reason For Visit: decompensation Subjective Notes: Conditional Voluntary Interim History: Pt slept through the night. He reports having less visions he reports he was seeing people on the streets with red eyes and he thought they were coming after him. He denies SI/HI. He reports feeling better. States he realizes he needs medications, but wonders if he is on too many... we discussed antipsychotic is newotn to decrease psychosis and delusions. agree with d/c low dose of sertraline 25mg po daily especially because will worsen psychosis. Advised to continue lithium for now Very mild rigidity on both arms on exam, no tremors, no tong-oral involuntary movements. Review of Systems Review of Systems Constitutional : No Weight loss, No Fever, No Chills, No Night Sweats, No Fatigue, No Malaise ENT/Mouth : No Hearing loss, No Ear Pain, No Nasal Congestion, No Sinus Pain, No Hoarseness, No sore throat, No Rhinorrhea, No Swallowing Difficulty Eyes: No Eye Pain, No Swelling, No Redness, No Foreign Body, No Discharge, No Vision Changes Cardiovascular : No Chest Pain, No SOB, No Dyspnea on Exertion, No Orthopnea, No Edema, No Palpitations Respiratory : No Cough, No Sputum, No Wheezing, No Smoke Exposure, No Dyspnea Gastrointestinal : No Nausea, No Vomiting, No Diarrhea, No Constipation, No abdominal Pain, No Hematochezia, No Melena Genitourinary : no irregular bleeding, No Dysuria, No Urinary Frequency, No Hematuria, No Urinary Incontinence, No Urgency, No Flank Pain, No Urinary Flow Changes, No Hesitancy Musculoskeletal : No joint pain, No Myalgias, No Joint Swelling Skin : No Skin Lesions, No rash Neuro : No Weakness, No Numbness, No Paresthesias, No Loss of Consciousness, No Dizziness, No Headache Psych : Complaining of insomnia, mood swings, decreased libido, seems paranoid Heme/Lymph: No Bruising, No Bleeding,No Lymphadenopathy Endocrine : No Polyuria, No Polydipsia, No Temperature Intolerance Mental Status Exam Mental Status Exam Narrative: Pt is alert and oriented x 4; behavior is cooperative, calm; dressed in casual attire; mood is described as better ; eye contact appropriate; Speech is normal rate, volume and not pressured; thought process is organized and goal directed; Delusions: less baptism delusions and less persecutory delusions. +VH/AH but less than before; denies SI/HI Diagnostics Vital Signs (24Hr): Vital Signs - 24 hr 07/30/24 19:59 07/31/24 07:20 Temperature 98.3 F 98.0 F Pulse Rate 79 91 Respiratory Rate 16 16 Blood Pressure 123/79 120/60 Pulse Oximetry 100 97 Oxygen Delivery Method Room Air Room Air BMI result Body Mass Index 19.6 Labs 07/27/24 19:07 07/30/24 08:32 Labs: Laboratory Results - last 48 hr 07/29/24 07/30/24 16:05 08:32 Sodium 139 Potassium 4.3 Chloride 102 Carbon Dioxide 29 Anion Gap 12 BUN 13 Creatinine 0.84 Estim Creat Clear Calc 123.0 Estimated GFR > 60 Fasting Glucose 102 H Estimat Average Glucose 105 Hemoglobin A1c % 5.3 Calcium 10.0 Total Bilirubin 0.6 Direct Bilirubin 0.2 AST 21 ALT 25 Alkaline Phosphatase 70 Total Protein 8.4 H Albumin 4.8 TSH 1.39 Urine Color Yellow Urine Appearance Cloudy Urine pH 6.5 Ur Specific [place] 1.015 Urine Protein Negative Urine Glucose (UA) Negative Urine Ketones Negative Urine Blood Negative Urine Nitrite Negative Ur Leukocyte Esterase Trace H Urine RBC 0-2 Urine WBC 0-5 Ur Squamous Epith Cells 0-2 Urine Bacteria None Seen Hyaline Casts 0-2 Urine Opiates Screen Not Detected Ur Buprenorphine Scrn Not Detected Ur Oxycodone Screen Not Detected Urine Methadone Screen Not Detected Urine Fentanyl Screen Not Detected Ur Barbiturates Screen Not Detected Ur Phencyclidine Scrn Not Detected Ur Amphetamines Screen Not Detected U Benzodiazepines Scrn Not Detected Urine Cocaine Screen Not Detected U Marijuana (THC) Screen Not Detected Medications Medications Current Medications Acetaminophen (Acetaminophen 325 Mg Tablet) 650 mg PO Q6H PRN PRN Reason: Headache/Pain Mild Scale (1-3) Al Hydroxide/Mg Hydroxide (Magnesium Hydrox/Alum Hydrox 30 Ml Oral.Susp) 30 ml PO Q6H PRN PRN Reason: Heartburn/Nausea Benztropine Mesylate (Benztropine Mesylate 1 Mg Tablet) 1 mg PO DAILY CELESTINA Last Admin: 07/31/24 08:55 Dose: 1 mg Haloperidol (Haloperidol 5 Mg Tablet) 10 mg PO BEDTIME CELESTINA Last Admin: 07/30/24 21:12 Dose: 10 mg Hydroxyzine HCl (Hydroxyzine Hcl 25 Mg Tablet) 25 mg PO Q6H PRN PRN Reason: Anxiety [place] Carbonate ([place] Carbonate 300 Mg Capsule) 600 mg PO BEDTIME CELESTINA Last Admin: 07/30/24 21:12 Dose: 600 mg Magnesium Hydroxide (Milk Of Magnesia 30 Ml Oral.Susp) 30 ml PO DAILY PRN PRN Reason: Constipation Melatonin (Melatonin 3 Mg Tablet) 3 mg PO BEDTIME PRN PRN Reason: Insomnia Last Admin: 07/28/24 22:36 Dose: 3 mg Nicotine (Nicotine 21 Mg Patch.Td24) 21 mg TRANSDERMA DAILY PRN PRN Reason: smoking cessation Nicotine Polacrilex (Nicotine Polacrilex 2 Mg Gum) 4 mg BUCCAL Q2H PRN PRN Reason: Nicotine Cravings Olanzapine (Olanzapine 5 Mg Tablet) 5 mg PO Q4H PRN PRN Reason: agitation Sertraline HCl (Sertraline Hcl 25 Mg Tablet) 25 mg PO DAILY [facility] Last Admin: 07/31/24 08:55 Dose: 25 mg Trazodone HCl (Trazodone Hcl 50 Mg Tablet) 50 mg PO BEDTIME MRX1 PRN PRN Reason: Insomnia Allergies Allergies Allergy/AdvReac Type Severity Reaction Status Date / Time shrimp Allergy Angioedema Verified 07/27/24 18:40 Assessment & Plan Assessment & Plan (1) Schizoaffective disorder: Status: Acute Code(s): F25.9 - Schizoaffective disorder, unspecified Plan Patient is a 19-year-old male with history of schizoaffective disorder who was assessed by [facility] crisis secondary to his mother calling requesting an assessment due to increased paranoia. Plan: 07/31 continue tx. dc sertraline. Reason for continued inpatient stay Substantial Risk for: inability to function Time Spent With Patient Time: Total time managing care of this patient today ____ minutes.
[2024-07-31 19:50] VITALS: BP 141/85; PULSE 64; RESP 18; TEMP 36.9; O2SAT 99
[2024-07-31] MEDS: Lithium Carbonate 300 MG CAPSULE 600 MG PO (21:47)
[2024-07-31] MEDS: HaloperidoL 5 MG TABLET 10 MG PO (21:47)
[2024-08-01 07:00] VITALS: BMI 19.7
[2024-08-01 08:00] VITALS: BP 121/78; PULSE 73; RESP 18; TEMP 36.8; O2SAT 99
--- NOTE | 2024-08-01 09:47 | HO.PSYCHPN ---
Subjective Subjective Date of Service: 08/01/24 Reason For Visit: decompensation Subjective Notes: Conditional Voluntary Interim History: microsoft crm developer present. pt reports feeling better and no longer having auditory hallucinations or paranoid delusions. He does report sexual dysfunction from Haldol such as decreased libido and difficulty obtaining an erection. Haldol decreased to 5mg PO bedtime; start Zyprexa 10mg PO bedtime. T/W called pt's mother with clerk general services; awaiting callback. Medication Compliance: Yes Attending Groups: No Review of Systems Constitutional: Reports as per HPI Eyes: Reports as per HPI Reports as per HPI Cardiovascular: Reports as per HPI Respiratory: Reports as per HPI Gastrointestinal: Reports as per HPI Genitourinary: Reports as per HPI Musculoskeletal: Reports as per HPI Skin/Breast: Reports as per HPI Reports as per HPI Psychiatric: Reports as per HPI Endocrine: Reports as per HPI Hematologic/Lymphatic: Reports as per HPI Allergic/Immunologic: Reports as per HPI Mental Status Exam Mental Status Exam Narrative: Pt is alert and oriented; behavior is cooperative; dressed in casual attire; mood is described as good ; eye contact appropriate; Speech is normal rate, volume and not pressured; thought process is organized; denies SI/HI/VH/AH. Pt reporting sexual dysfunction. Diagnostics Vital Signs (24Hr): Vital Signs - 24 hr 07/31/24 19:50 08/01/24 08:00 Temperature 98.5 F 98.2 F Pulse Rate 64 73 Respiratory Rate 18 18 Blood Pressure 141/85 H 121/78 Pulse Oximetry 99 99 Oxygen Delivery Method Room Air Room Air BMI result Body Mass Index 19.6 Labs 07/27/24 19:07 07/30/24 08:32 Labs: Laboratory Results - last 48 hr 07/30/24 08:32 TSH 1.39 Medications Medications Current Medications Acetaminophen (Acetaminophen 325 Mg Tablet) 650 mg PO Q6H PRN PRN Reason: Headache/Pain Mild Scale (1-3) Al Hydroxide/Mg Hydroxide (Magnesium Hydrox/Alum Hydrox 30 Ml Oral.Susp) 30 ml PO Q6H PRN PRN Reason: Heartburn/Nausea Benztropine Mesylate (Benztropine Mesylate 1 Mg Tablet) 1 mg PO BEDTIME CELESTINA Last Admin: 07/31/24 21:47 Dose: 1 mg Haloperidol (Haloperidol 5 Mg Tablet) 10 mg PO BEDTIME CELESTINA Last Admin: 07/31/24 21:47 Dose: 10 mg Hydroxyzine HCl (Hydroxyzine Hcl 25 Mg Tablet) 25 mg PO Q6H PRN PRN Reason: Anxiety [place] Carbonate ([place] Carbonate 300 Mg Capsule) 600 mg PO BEDTIME CELESTINA Last Admin: 07/31/24 21:47 Dose: 600 mg Magnesium Hydroxide (Milk Of Magnesia 30 Ml Oral.Susp) 30 ml PO DAILY PRN PRN Reason: Constipation Melatonin (Melatonin 3 Mg Tablet) 3 mg PO BEDTIME PRN PRN Reason: Insomnia Last Admin: 07/28/24 22:36 Dose: 3 mg Nicotine (Nicotine 21 Mg Patch.Td24) 21 mg TRANSDERMA DAILY PRN PRN Reason: smoking cessation Nicotine Polacrilex (Nicotine Polacrilex 2 Mg Gum) 4 mg BUCCAL Q2H PRN PRN Reason: Nicotine Cravings Olanzapine (Olanzapine 5 Mg Tablet) 5 mg PO Q4H PRN PRN Reason: agitation Trazodone HCl (Trazodone Hcl 50 Mg Tablet) 50 mg PO BEDTIME MRX1 PRN PRN Reason: Insomnia Allergies Allergies Allergy/AdvReac Type Severity Reaction Status Date / Time shrimp Allergy Angioedema Verified 07/27/24 18:40 Assessment & Plan Assessment & Plan (1) Schizoaffective disorder: Status: Acute Code(s): F25.9 - Schizoaffective disorder, unspecified Plan Patient is a 19-year-old male with history of schizoaffective disorder who was assessed by [facility] crisis secondary to his mother calling requesting an assessment due to increased paranoia. Plan: 07/31 continue tx. dc sertraline. 08/01: microsoft crm developer present. pt reports feeling better and no longer having auditory hallucinations or paranoid delusions. He does report sexual dysfunction from Haldol such as decreased libido and difficulty obtaining an erection. Haldol decreased to 5mg PO bedtime; start Zyprexa 10mg PO bedtime. T/W called pt's mother with clerk general services; awaiting callback. Patient educated on: diagnosis, medication risk/benefits and therapeutic strategies Reason for continued inpatient stay Substantial Risk for: med/psych decompensation Time Spent With Patient Time: Total time managing care of this patient today _20___ minutes.
[2024-08-01 19:25] VITALS: BP 129/77; PULSE 70; RESP 12; TEMP 36.9; O2SAT 100
[2024-08-01] MEDS: Lithium Carbonate 300 MG CAPSULE 600 MG PO (21:13)
[2024-08-01] MEDS: HaloperidoL 5 MG TABLET PO (21:14)
[2024-08-01] MEDS: Benztropine Mesylate 1 MG TABLET PO (21:14)
[2024-08-01] MEDS: OLANZapine 10 MG TABLET PO (21:14)
[2024-08-02 07:38] VITALS: BP 137/79; PULSE 52; RESP 16; TEMP 36.8; O2SAT 99
--- NOTE | 2024-08-02 08:56 | HO.PSYCHPN ---
Subjective Subjective Date of Service: 08/02/24 Reason For Visit: decompensation Subjective Notes: Conditional Voluntary Interim History: diplomatic interpreter present. pt reports feeling good ; continues to deny auditory hallucinations or paranoid delusions. Pt stated, I don't see evil in people anymore or think I'm a secret of the government . He continues to report sexual dysfunction from Haldol. DC Haldol. Continue Zyprexa; encouraged to tell staff or weekend provider if experiences any side effects. Medication Compliance: Yes Attending Groups: Intermittent Review of Systems Constitutional: Reports as per HPI Eyes: Reports as per HPI Reports as per HPI Cardiovascular: Reports as per HPI Respiratory: Reports as per HPI Gastrointestinal: Reports as per HPI Genitourinary: Reports as per HPI Musculoskeletal: Reports as per HPI Skin/Breast: Reports as per HPI Reports as per HPI Psychiatric: Reports as per HPI Endocrine: Reports as per HPI Hematologic/Lymphatic: Reports as per HPI Allergic/Immunologic: Reports as per HPI Mental Status Exam Mental Status Exam Narrative: Pt is alert and oriented; behavior is cooperative, calm; dressed in casual attire; mood is described as good ; eye contact appropriate; Speech is normal rate, volume and not pressured; thought process is organized; denies SI/HI/VH/AH. Pt reporting sexual dysfunction. Diagnostics Vital Signs (24Hr): Vital Signs - 24 hr 08/01/24 19:25 08/02/24 07:38 Temperature 98.4 F 98.3 F Pulse Rate 70 52 Respiratory Rate 12 16 Blood Pressure 129/77 137/79 Pulse Oximetry 100 99 Oxygen Delivery Method Room Air Room Air BMI result Body Mass Index 19.7 Labs 07/27/24 19:07 07/30/24 08:32 Medications Medications Current Medications Acetaminophen (Acetaminophen 325 Mg Tablet) 650 mg PO Q6H PRN PRN Reason: Headache/Pain Mild Scale (1-3) Al Hydroxide/Mg Hydroxide (Magnesium Hydrox/Alum Hydrox 30 Ml Oral.Susp) 30 ml PO Q6H PRN PRN Reason: Heartburn/Nausea Benztropine Mesylate (Benztropine Mesylate 1 Mg Tablet) 1 mg PO BEDTIME CELESTINA Last Admin: 08/01/24 21:14 Dose: 1 mg Haloperidol (Haloperidol 5 Mg Tablet) 5 mg PO BEDTIME CELESTINA Last Admin: 08/01/24 21:14 Dose: 5 mg Hydroxyzine HCl (Hydroxyzine Hcl 25 Mg Tablet) 25 mg PO Q6H PRN PRN Reason: Anxiety [place] Carbonate ([place] Carbonate 300 Mg Capsule) 600 mg PO BEDTIME CELESTINA Last Admin: 08/01/24 21:13 Dose: 600 mg Magnesium Hydroxide (Milk Of Magnesia 30 Ml Oral.Susp) 30 ml PO DAILY PRN PRN Reason: Constipation Melatonin (Melatonin 3 Mg Tablet) 3 mg PO BEDTIME PRN PRN Reason: Insomnia Last Admin: 07/28/24 22:36 Dose: 3 mg Nicotine (Nicotine 21 Mg Patch.Td24) 21 mg TRANSDERMA DAILY PRN PRN Reason: smoking cessation Nicotine Polacrilex (Nicotine Polacrilex 2 Mg Gum) 4 mg BUCCAL Q2H PRN PRN Reason: Nicotine Cravings Olanzapine (Olanzapine 5 Mg Tablet) 5 mg PO Q4H PRN PRN Reason: agitation Olanzapine (Olanzapine 10 Mg Tablet) 10 mg PO BEDTIME CELESTINA Last Admin: 08/01/24 21:14 Dose: 10 mg Trazodone HCl (Trazodone Hcl 50 Mg Tablet) 50 mg PO BEDTIME MRX1 PRN PRN Reason: Insomnia Allergies Allergies Allergy/AdvReac Type Severity Reaction Status Date / Time shrimp Allergy Angioedema Verified 07/27/24 18:40 Assessment & Plan Assessment & Plan (1) Schizoaffective disorder: Status: Acute Code(s): F25.9 - Schizoaffective disorder, unspecified Plan Patient is a 19-year-old male with history of schizoaffective disorder who was assessed by [facility] crisis secondary to his mother calling requesting an assessment due to increased paranoia. Plan: 07/31 continue tx. dc sertraline. 08/01: diplomatic interpreter present. pt reports feeling better and no longer having auditory hallucinations or paranoid delusions. He does report sexual dysfunction from Haldol such as decreased libido and difficulty obtaining an erection. Haldol decreased to 5mg PO bedtime; start Zyprexa 10mg PO bedtime. T/W called pt's mother with per diem interpreter services; awaiting callback. 08/02: pt reports feeling good ; continues to deny auditory hallucinations or paranoid delusions. Pt stated, I don't see evil in people anymore or think I'm a secret of the government . He continues to report sexual dysfunction from Haldol. DC Haldol. Continue Zyprexa; encouraged to tell staff or weekend provider if experiences any side effects. Patient educated on: diagnosis and medication risk/benefits Reason for continued inpatient stay Substantial Risk for: med/psych decompensation Time Spent With Patient Time: Total time managing care of this patient today _20___ minutes.
[2024-08-02 20:00] VITALS: BP 125/60; PULSE 71; RESP 16; TEMP 36.9; O2SAT 97
[2024-08-02] MEDS: Benztropine Mesylate 1 MG TABLET PO (20:53)
[2024-08-02] MEDS: OLANZapine 10 MG TABLET PO (20:53)
[2024-08-02] MEDS: Lithium Carbonate 300 MG CAPSULE 600 MG PO (20:53)
[2024-08-03 07:30] VITALS: BP 116/70; PULSE 61; RESP 14; TEMP 36.6; O2SAT 100
--- NOTE | 2024-08-03 08:46 | P.PNPSI_ITS ---
Subjective Subjective Date of Service: 08/03/24 Reason For Visit: decompensation Subjective Notes: Conditional Voluntary Interim History: The nursing staff reported that the patient had been compliant with treatment, he had been eating well. He had been switched from Haldol to Zyprexa due to sexual side effects. He slept well and he has been pleasant slept 8 hours. On interview the patient denies new symptoms he states that he feels much better Mental Status Exam Mental Status Exam Patient Appearance: Well Grooomed and Appropriate Patient Orientation: Person and Situation Level of Consciousness: Awake Patient Behavior: Guarded and Passive Mood Description: Calm Affect Description: Constricted Patient Cognition Impaired: Yes Ability to Follow Directions: Good Speech Pattern: Clear Hallucinations: None Delusions: Ideas of Reference Thought Process: Linear Thought Content: positive for [place] and positive for Circumstantial Judgement: Fair Diagnostics Vital Signs (24Hr): Vital Signs - 24 hr 08/02/24 20:00 08/03/24 07:30 Temperature 98.5 F 97.8 F Pulse Rate 71 61 Respiratory Rate 16 14 Blood Pressure 125/60 116/70 Pulse Oximetry 97 100 Oxygen Delivery Method Room Air Room Air BMI result Body Mass Index 19.7 Labs 07/27/24 19:07 07/30/24 08:32 Medications Medications Current Medications Acetaminophen (Acetaminophen 325 Mg Tablet) 650 mg PO Q6H PRN PRN Reason: Headache/Pain Mild Scale (1-3) Al Hydroxide/Mg Hydroxide (Magnesium Hydrox/Alum Hydrox 30 Ml Oral.Susp) 30 ml PO Q6H PRN PRN Reason: Heartburn/Nausea Benztropine Mesylate (Benztropine Mesylate 1 Mg Tablet) 1 mg PO BEDTIME CELESTINA Last Admin: 08/02/24 20:53 Dose: 1 mg Hydroxyzine HCl (Hydroxyzine Hcl 25 Mg Tablet) 25 mg PO Q6H PRN PRN Reason: Anxiety [place] Carbonate ([place] Carbonate 300 Mg Capsule) 600 mg PO BEDTIME CELESTINA Last Admin: 08/02/24 20:53 Dose: 600 mg Magnesium Hydroxide (Milk Of Magnesia 30 Ml Oral.Susp) 30 ml PO DAILY PRN PRN Reason: Constipation Melatonin (Melatonin 3 Mg Tablet) 3 mg PO BEDTIME PRN PRN Reason: Insomnia Last Admin: 07/28/24 22:36 Dose: 3 mg Nicotine (Nicotine 21 Mg Patch.Td24) 21 mg TRANSDERMA DAILY PRN PRN Reason: smoking cessation Nicotine Polacrilex (Nicotine Polacrilex 2 Mg Gum) 4 mg BUCCAL Q2H PRN PRN Reason: Nicotine Cravings Olanzapine (Olanzapine 5 Mg Tablet) 5 mg PO Q4H PRN PRN Reason: agitation Olanzapine (Olanzapine 10 Mg Tablet) 10 mg PO BEDTIME CELESTINA Last Admin: 08/02/24 20:53 Dose: 10 mg Trazodone HCl (Trazodone Hcl 50 Mg Tablet) 50 mg PO BEDTIME MRX1 PRN PRN Reason: Insomnia Allergies Allergies Allergy/AdvReac Type Severity Reaction Status Date / Time shrimp Allergy Angioedema Verified 07/27/24 18:40 Assessment & Plan Assessment & Plan (1) Schizoaffective disorder: Status: Acute Code(s): F25.9 - Schizoaffective disorder, unspecified Plan Patient is a 19-year-old male with history of schizoaffective disorder who was assessed by [facility] crisis secondary to his mother calling requesting an assessment due to increased paranoia. Plan: 07/31 continue tx. dc sertraline. 08/01: supervisor food checkers and cashiers present. pt reports feeling better and no longer having auditory hallucinations or paranoid delusions. He does report sexual dysfunction from Haldol such as decreased libido and difficulty obtaining an erection. Haldol decreased to 5mg PO bedtime; start Zyprexa 10mg PO bedtime. T/W called pt's mother with lockstitch sleeve setter services; awaiting callback. 08/02: pt reports feeling good ; continues to deny auditory hallucinations or paranoid delusions. Pt stated, I don't see evil in people anymore or think I'm a secret of the government . He continues to report sexual dysfunction from Haldol. DC Haldol. Continue Zyprexa; encouraged to tell staff or weekend provider if experiences any side effects. 08/03 no side effects with the recent change of antipsychotics. Denies exacerbation of psychosis. Reason for continued inpatient stay Substantial Risk for: inability to function, rapid decompensation and med/psych decompensation Time Spent With Patient Time: Total time managing care of this patient today __20__ minutes.
[2024-08-03 10:57] LABS: Lithium 0.45 mmol/L (0.60-1.20)
[2024-08-03 11:08] LABS: Anion Gap 9 (12-20); Blood Urea Nitrogen 12 mg/dL (9-16); Carbon Dioxide 32 mmol/L (22-29); Chloride 104 mmol/L (96-108); Creatinine Clr Calc Pharmacy 134.7; Estimated Glomerular Filt Rate > 60; Potassium 4.1 mmol/L (3.3-5.1); Sodium 141 mmol/L (135-145)
[2024-08-03 11:24] LABS: TSH reflex Free T4 1.91 uIU/mL (0.32-4.0)
[2024-08-03 20:00] VITALS: BP 127/73; PULSE 68; RESP 16; TEMP 36.6; O2SAT 100
[2024-08-03] MEDS: Lithium Carbonate 300 MG CAPSULE 600 MG PO (20:49)
[2024-08-03] MEDS: OLANZapine 10 MG TABLET PO (20:50)
[2024-08-03] MEDS: Benztropine Mesylate 1 MG TABLET PO (20:50)
[2024-08-04 08:00] VITALS: BP 127/71; PULSE 68; RESP 16; TEMP 36.9; O2SAT 99
--- NOTE | 2024-08-04 08:51 | HO.PSYCHPN ---
Subjective Subjective Date of Service: 08/04/24 Reason For Visit: decompensation Subjective Notes: Conditional Voluntary Interim History: The nursing staff reported the patient had been seen in the unit watching TV cooperative slept 8 hours. On interview the patient denies new symptoms compliant with treatment Mental Status Exam Mental Status Exam Patient Appearance: Well Grooomed and Appropriate Patient Orientation: Person and Situation Level of Consciousness: Awake and Appropriate Patient Behavior: Guarded and Passive Mood Description: Withdrawn Affect Description: Constricted Patient Cognition Impaired: Yes Ability to Follow Directions: Good Speech Pattern: Clear Hallucinations: None Delusions: Ideas of Reference Thought Process: Distracted and Slowed Thinking Thought Content: positive for [place] and positive for Poverty of Content Judgement: Fair Diagnostics Vital Signs (24Hr): Vital Signs - 24 hr 08/03/24 20:00 08/04/24 08:00 Temperature 97.9 F 98.5 F Pulse Rate 68 68 Respiratory Rate 16 16 Blood Pressure 127/73 127/71 Pulse Oximetry 100 99 Oxygen Delivery Method Room Air Room Air BMI result Body Mass Index 19.7 Labs 07/27/24 19:07 08/03/24 10:20 Labs: Laboratory Results - last 48 hr 08/03/24 10:20 Sodium 141 Potassium 4.1 Chloride 104 Carbon Dioxide 32 H Anion Gap 9 L BUN 12 Creatinine 0.77 Estim Creat Clear Calc 134.7 Estimated GFR > 60 TSH 1.91 [place] 0.45 L Medications Medications Current Medications Acetaminophen (Acetaminophen 325 Mg Tablet) 650 mg PO Q6H PRN PRN Reason: Headache/Pain Mild Scale (1-3) Al Hydroxide/Mg Hydroxide (Magnesium Hydrox/Alum Hydrox 30 Ml Oral.Susp) 30 ml PO Q6H PRN PRN Reason: Heartburn/Nausea Benztropine Mesylate (Benztropine Mesylate 1 Mg Tablet) 1 mg PO BEDTIME CELESTINA Last Admin: 08/03/24 20:50 Dose: 1 mg Hydroxyzine HCl (Hydroxyzine Hcl 25 Mg Tablet) 25 mg PO Q6H PRN PRN Reason: Anxiety [place] Carbonate ([place] Carbonate 300 Mg Capsule) 600 mg PO BEDTIME CELESTINA Last Admin: 08/03/24 20:49 Dose: 600 mg Magnesium Hydroxide (Milk Of Magnesia 30 Ml Oral.Susp) 30 ml PO DAILY PRN PRN Reason: Constipation Melatonin (Melatonin 3 Mg Tablet) 3 mg PO BEDTIME PRN PRN Reason: Insomnia Last Admin: 07/28/24 22:36 Dose: 3 mg Nicotine (Nicotine 21 Mg Patch.Td24) 21 mg TRANSDERMA DAILY PRN PRN Reason: smoking cessation Nicotine Polacrilex (Nicotine Polacrilex 2 Mg Gum) 4 mg BUCCAL Q2H PRN PRN Reason: Nicotine Cravings Olanzapine (Olanzapine 5 Mg Tablet) 5 mg PO Q4H PRN PRN Reason: agitation Olanzapine (Olanzapine 10 Mg Tablet) 10 mg PO BEDTIME CELESTINA Last Admin: 08/03/24 20:50 Dose: 10 mg Trazodone HCl (Trazodone Hcl 50 Mg Tablet) 50 mg PO BEDTIME MRX1 PRN PRN Reason: Insomnia Allergies Allergies Allergy/AdvReac Type Severity Reaction Status Date / Time shrimp Allergy Angioedema Verified 07/27/24 18:40 Assessment & Plan Assessment & Plan (1) Schizoaffective disorder: Status: Acute Code(s): F25.9 - Schizoaffective disorder, unspecified Plan Patient is a 19-year-old male with history of schizoaffective disorder who was assessed by [facility] crisis secondary to his mother calling requesting an assessment due to increased paranoia. Plan: 07/31 continue tx. dc sertraline. 08/01: beautician apprentice present. pt reports feeling better and no longer having auditory hallucinations or paranoid delusions. He does report sexual dysfunction from Haldol such as decreased libido and difficulty obtaining an erection. Haldol decreased to 5mg PO bedtime; start Zyprexa 10mg PO bedtime. T/W called pt's mother with purification operator services; awaiting callback. 08/02: pt reports feeling good ; continues to deny auditory hallucinations or paranoid delusions. Pt stated, I don't see evil in people anymore or think I'm a secret of the government . He continues to report sexual dysfunction from Haldol. DC Haldol. Continue Zyprexa; encouraged to tell staff or weekend provider if experiences any side effects. 08/03 no side effects with the recent change of antipsychotics. Denies exacerbation of psychosis. 08/04 continue same treatment. Reason for continued inpatient stay Substantial Risk for: inability to function, rapid decompensation and med/psych decompensation Time Spent With Patient Time: Total time managing care of this patient today __20__ minutes.
[2024-08-04 19:07] VITALS: BP 130/79; PULSE 77; RESP 16; TEMP 36.8; O2SAT 100
[2024-08-04] MEDS: Benztropine Mesylate 1 MG TABLET PO (22:08)
[2024-08-04] MEDS: Lithium Carbonate 300 MG CAPSULE 600 MG PO (22:08)
[2024-08-04] MEDS: OLANZapine 10 MG TABLET PO (22:09)
[2024-08-05 08:04] VITALS: BP 118/65; PULSE 71; RESP 16; TEMP 37; O2SAT 99
--- NOTE | 2024-08-05 10:26 | P.PNPSI_ITS ---
Subjective Subjective Date of Service: 08/05/24 Reason For Visit: decompensation Subjective Notes: Conditional Voluntary Interim History: educational sign language interpreter present. Patient reports feeling good and positive ; pt reports he is no longer having sexual side effects. denies SI/HI/VH/AH. He is requesting to be discharged home tomorrow. Patient reports he plans on following up with his outpatient providers. Medication Compliance: Yes Side effects from medications: No Attending Groups: Intermittent Review of Systems Constitutional: Reports as per HPI Eyes: Reports as per HPI Reports as per HPI Cardiovascular: Reports as per HPI Respiratory: Reports as per HPI Gastrointestinal: Reports as per HPI Genitourinary: Reports as per HPI Musculoskeletal: Reports as per HPI Skin/Breast: Reports as per HPI Reports as per HPI Psychiatric: Reports as per HPI Endocrine: Reports as per HPI Hematologic/Lymphatic: Reports as per HPI Allergic/Immunologic: Reports as per HPI Mental Status Exam Mental Status Exam Narrative: Pt is alert and oriented; behavior is cooperative and calm; dressed in casual attire; mood is described as good ; eye contact appropriate; Speech is normal rate, volume and not pressured; thought process is organized; Thought content is on discharge; denies SI/HI/VH/AH. Diagnostics Vital Signs (24Hr): Vital Signs - 24 hr 08/04/24 19:07 08/05/24 08:04 Temperature 98.3 F 98.6 F Pulse Rate 77 71 Respiratory Rate 16 16 Blood Pressure 130/79 118/65 Pulse Oximetry 100 99 Oxygen Delivery Method Room Air Room Air BMI result Body Mass Index 19.7 Labs 07/27/24 19:07 08/03/24 10:20 Labs: Laboratory Results - last 48 hr 08/03/24 10:20 Sodium 141 Potassium 4.1 Chloride 104 Carbon Dioxide 32 H Anion Gap 9 L BUN 12 Creatinine 0.77 Estim Creat Clear Calc 134.7 Estimated GFR > 60 TSH 1.91 [place] 0.45 L Medications Medications Current Medications Acetaminophen (Acetaminophen 325 Mg Tablet) 650 mg PO Q6H PRN PRN Reason: Headache/Pain Mild Scale (1-3) Al Hydroxide/Mg Hydroxide (Magnesium Hydrox/Alum Hydrox 30 Ml Oral.Susp) 30 ml PO Q6H PRN PRN Reason: Heartburn/Nausea Benztropine Mesylate (Benztropine Mesylate 1 Mg Tablet) 1 mg PO BEDTIME CELESTINA Last Admin: 08/04/24 22:08 Dose: 1 mg Hydroxyzine HCl (Hydroxyzine Hcl 25 Mg Tablet) 25 mg PO Q6H PRN PRN Reason: Anxiety [place] Carbonate ([place] Carbonate 300 Mg Capsule) 600 mg PO BEDTIME CELESTINA Last Admin: 08/04/24 22:08 Dose: 600 mg Magnesium Hydroxide (Milk Of Magnesia 30 Ml Oral.Susp) 30 ml PO DAILY PRN PRN Reason: Constipation Melatonin (Melatonin 3 Mg Tablet) 3 mg PO BEDTIME PRN PRN Reason: Insomnia Last Admin: 07/28/24 22:36 Dose: 3 mg Nicotine (Nicotine 21 Mg Patch.Td24) 21 mg TRANSDERMA DAILY PRN PRN Reason: smoking cessation Nicotine Polacrilex (Nicotine Polacrilex 2 Mg Gum) 4 mg BUCCAL Q2H PRN PRN Reason: Nicotine Cravings Olanzapine (Olanzapine 5 Mg Tablet) 5 mg PO Q4H PRN PRN Reason: agitation Olanzapine (Olanzapine 10 Mg Tablet) 10 mg PO BEDTIME CELESTINA Last Admin: 08/04/24 22:09 Dose: 10 mg Trazodone HCl (Trazodone Hcl 50 Mg Tablet) 50 mg PO BEDTIME MRX1 PRN PRN Reason: Insomnia Allergies Allergies Allergy/AdvReac Type Severity Reaction Status Date / Time shrimp Allergy Angioedema Verified 07/27/24 18:40 Assessment & Plan Assessment & Plan (1) Schizoaffective disorder: Status: Acute Code(s): F25.9 - Schizoaffective disorder, unspecified Plan Patient is a 19-year-old male with history of schizoaffective disorder who was assessed by [facility] crisis secondary to his mother calling requesting an assessment due to increased paranoia. Plan: 07/31 continue tx. dc sertraline. 08/01: educational sign language interpreter present. pt reports feeling better and no longer having auditory hallucinations or paranoid delusions. He does report sexual dysfunction from Haldol such as decreased libido and difficulty obtaining an erection. Haldol decreased to 5mg PO bedtime; start Zyprexa 10mg PO bedtime. T/W called pt's mother with motor vehicle parts interpreter services; awaiting callback. 08/02: pt reports feeling good ; continues to deny auditory hallucinations or paranoid delusions. Pt stated, I don't see evil in people anymore or think I'm a secret of the government . He continues to report sexual dysfunction from Haldol. DC Haldol. Continue Zyprexa; encouraged to tell staff or weekend provider if experiences any side effects. 08/03 no side effects with the recent change of antipsychotics. Denies exacerbation of psychosis. 08/04 continue same treatment. 08/05: educational sign language interpreter present. Patient reports feeling good and positive ; pt reports he is no longer having sexual side effects. denies SI/HI/VH/AH. He is requesting to be discharged home tomorrow. Patient reports he plans on following up with his outpatient providers. [place] level 0.45 on 08/03/24. Patient educated on: diagnosis and medication risk/benefits Reason for continued inpatient stay Substantial Risk for: stable for discharge Time Spent With Patient Time: Total time managing care of this patient today _20___ minutes.
[2024-08-05 19:19] VITALS: BP 122/70; PULSE 91; RESP 16; TEMP 36.9; O2SAT 99
[2024-08-05] MEDS: OLANZapine 10 MG TABLET PO (21:13)
[2024-08-05] MEDS: Benztropine Mesylate 1 MG TABLET PO (21:13)
[2024-08-05] MEDS: Lithium Carbonate 300 MG CAPSULE 600 MG PO (21:13)
[2024-08-06 07:41] VITALS: BP 114/70; PULSE 82; RESP 18; TEMP 37; O2SAT 100
--- NOTE | 2024-08-06 09:48 | PM.PSYDC ---
DS: Providers Provider Date of Service: 08/06/24 Date of admission: 07/29/24 20:48 Date of discharge: 08/06/24 Primary care physician: Deisy Batres MD Admitting clinician: Sophia Castellano Attending physician on admission: David Hobbs Attending physician on discharge: Felice Dodd Discharging clinician: Sophia Csatellano DS: Diagnosis Discharge Diagnosis (1) Schizoaffective disorder: Status: Acute DS: Medications Discharge Medications Home Medications: Previous Rx's ?Medication ?Instructions ?Recorded benztropine 1 mg tablet 1 mg PO BEDTIME 30 days #30 tabs 08/05/24 lithium carbonate 600 mg capsule 600 mg PO BEDTIME 30 days #30 caps 08/05/24 melatonin 3 mg tablet 3 mg PO BEDTIME PRN Insomnia 30 08/05/24 days #30 tabs olanzapine 10 mg tablet 10 mg PO BEDTIME 30 days #30 tabs 08/05/24 Mental Status Exam Mental Status Exam Narrative: Pt is alert and oriented; behavior is cooperative and calm; dressed in casual attire; mood is described as good ; eye contact appropriate; Speech is normal rate, volume and not pressured; thought process is organized; Thought content is on discharge; denies SI/HI/VH/AH. Data Data Completed and Pending Completed studies during hospitalization [Text1]: 07/30/24 08/03/24 08:32 10:20 Sodium 141 Potassium 4.1 Chloride 104 Carbon Dioxide 32 H Anion Gap 9 L BUN 12 Creatinine 0.77 Estim Creat Clear Calc 134.7 Estimated GFR > 60 TSH 1.39 1.91 [place] 0.45 L DS: Summary Hospital Course Hospital Course: Patient is a 19-year-old male with history of schizoaffective disorder who was assessed by [facility] crisis secondary to his mother calling requesting an assessment due to increased paranoia. Per crisis report, patient reports he feels he is being recorded by phones, cameras and the microwave. He feels though he is life is a movie. Patient's mother reports he has seemed off the last few days as he has had difficulty sleeping and trouble engaging. Patient reported that on 06/12/2024 he was traveling to [place] from [place] and he had a layover in [place], and while he was in the airport he opened a secure door which resulted in him being arrested. Patient reported that he felt he released a demon when he opened the door and that the demon had been controlling his life. Patient's mother reports that patient has been noncompliant with his medications for a few days. During admission assessment, [email or web address] programmer analyst present. Patient presents alert and oriented x3, calm and cooperative. Patient stated, I feel confused about life because I see malice in the eyes of people. I feel like telephones are listening to me and that I am a secret of the government. I want to see people normally. The meds were making me feel like a robot and were taking away my sexual appetite . Patient reports he has not been taking his medications for about 4 days. He denies SI/HI/VH/AH at this time. He does report he was having visual hallucinations of people having red eyes. Plan: dc sertraline. [email or web address] programmer analyst present. pt reports feeling better and no longer having auditory hallucinations or paranoid delusions. He does report sexual dysfunction from Haldol such as decreased libido and difficulty obtaining an erection. Haldol decreased to 5mg PO bedtime; start Zyprexa 10mg PO bedtime. T/W called pt's mother with [employer] engineer services; awaiting callback. pt reports feeling good ; continues to deny auditory hallucinations or paranoid delusions. Pt stated, I don't see evil in people anymore or think I'm a secret of the government . He continues to report sexual dysfunction from Haldol. DC Haldol. Continue Zyprexa; encouraged to tell staff or weekend provider if experiences any side effects. no side effects with the recent change of antipsychotics. Denies exacerbation of psychosis. [email or web address] programmer analyst present. Patient reports feeling good and positive ; pt reports he is no longer having sexual side effects. denies SI/HI/VH/AH. He is requesting to be discharged home tomorrow. Patient reports he plans on following up with his outpatient providers. [place] level 0.45 on 08/03/24. Patient reports feeling good and denies any side effects from medications. Pt reports he plans on following up with his outpatient providers. denies SI/HI/VH/AH. Time spent discussing smoking cessation with patient: 3 to 10 minutes Status at Discharge Cognitive/behavioral status at discharge: Patient was interviewed prior to discharge and found to be fully oriented and without SI or HI. Patient has insight and demonstrates good judgment in terms of wanting to pursue treatment. Patient has a safety plan that includes presenting to the closest ER or calling 911 if feeling unsafe. Functional status at discharge: independent ambulation Overall status at discharge: patient is back to baseline Time Spent with Patient Time attestation: Total time managing care of this patient today _20___ minutes. Time spent: Less than 30 minutes Discharge Plan Discharge Anticipated Discharge Date/Time: 08/06/24 11:45 Patient Disposition: Home, Self-Care Discharge Diagnosis: Schizoaffective d/o Referrals: Delvin Christine (Therapy) [Other] - 08/12/24 10:00 am (IN OFFICE APPOINTMENT -Please arrive 15 minutes early to your appointment in order to fill out necessary paperwork. ) Johnny Sutton (Psychiatry) [Other] - 09/04/24 9:00 am (TELEHEALTH APPOINTMENT -Psychiatric Evaluation ) Johnny Sutton (Psychiatry) [Other] - 10/01/24 9:20 am (TELEHEALTH APPOINTMENT -Medication Management ) Deisy Batres MD [Primary Care Provider] - 1 Week Discharge Medications: New olanzapine 10 mg Tablet 10 mg PO BEDTIME 30 Days Qty: 30 0RF Continued melatonin 3 mg tablet 3 mg PO BEDTIME PRN (Reason: Insomnia) 30 Days Qty: 30 0RF lithium carbonate 600 mg capsule 600 mg PO BEDTIME 30 Days Qty: 30 0RF Changed benztropine 1 mg tablet 1 mg PO BEDTIME 30 Days Qty: 30 0RF Discontinued haloperidol 10 mg tablet 10 mg PO BEDTIME sertraline 25 mg tablet 25 mg PO DAILY Discharge Orders: Discharge Order (Routine); Ordered 08/06/24 Ordered By: Sophia Castellano Diet: Regular diet Activity on Discharge: As tolerated Stand Alone Forms: Patient Portal Discharge page, Community Support Print Language: Turkish Care Plan Goals: Maintain mood and safe behaviors Take medications as prescribed Practice coping skills Continue with outpatient providers and reach out to them as needed Health Concerns: Mood stability and behaviors Follow up with outpatient providers regarding [place] level Plan of Treatment: Follow up with your PCP, psychiatric provider and other outpatient providers regarding above concerns Take medications as prescribed Assessment: Patient was interviewed prior to discharge and found to be fully oriented and without SI or HI. Patient has insight and demonstrates good judgment in terms of wanting to pursue treatment. Patient has a safety plan that includes presenting to the closest ER or calling 911 if feeling unsafe.
== END 2024-08-06 11:59 | disposition home or self-care (01) | DRG 750 ==
LOC: HO.ED 07-28 03:46 → HO.PADLT16 07-29 21:25
PROVIDERS: Nurse Practitioner Family; Admitting Provider Psychiatry & Neurology Psychiatry; Emergency Provider Emergency Medicine; PCP Family Medicine; Responsible Provider Registered Nurse; Visit Provider Psychiatry & Neurology Psychiatry
DX: F25.9 Schizoaffective disorder, unspecified (principal); Z79.899 Other long term (current) drug therapy
CPT/HCPCS: 36415; 80051; 80053; 80076; 80178; 80307; 81001; 82565; 83036; 84443; 84520; 85025; 93005; 99285; S9485

== ENCOUNTER → 2024-07-29 07:39 | Outpatient (BNV) | payer MEDICAID, SELFPAY | PROVIDERS: Emergency Provider Emergency Medicine; PCP Family Medicine; Visit Provider Internal Medicine Cardiovascular Disease | DX: I49.9 Cardiac arrhythmia, unspecified (principal) | CPT/HCPCS: 93010 ==

== ENCOUNTER → 2024-07-29 20:48 | Outpatient (BNV) | payer OTHER, SELFPAY | PROVIDERS: Admitting Provider Psychiatry & Neurology Psychiatry; Emergency Provider Emergency Medicine; PCP Family Medicine; Responsible Provider Registered Nurse; Visit Provider Social Worker | DX: F25.0 Schizoaffective disorder, bipolar type (principal) | CPT/HCPCS: 99231; 99232; 99233 ==

== ENCOUNTER 2024-08-23 09:47 | Outpatient (REF) | payer OTHER, SELFPAY ==
[2024-08-23 14:22] LABS: MANUAL DIFF FLAG NO
[2024-08-23 14:49] LABS: Lithium < 0.10 mmol/L (0.60-1.20)
[2024-08-23 14:55] LABS: Alanine Aminotransferase 150 U/L (0-40); Albumin Level 4.8 g/dL (3.5-5.0); Alkaline Phosphatase 67 U/L (39-117); Anion Gap 10 (12-20); Aspartate Amino Transferase 52 U/L (5-37); Bilirubin Direct 0.2 mg/dL (0.0-0.5); Bilirubin Total 0.3 mg/dL (0.0-1.0); Blood Urea Nitrogen 16 mg/dL (9-16); Calcium 9.8 mg/dL (8.4-10.2); Carbon Dioxide 27 mmol/L (22-29); Chloride 107 mmol/L (96-108); Estimated Glomerular Filt Rate > 60; Glucose Random 94 mg/dL (60-115); Potassium 4.2 mmol/L (3.3-5.1); Sodium 140 mmol/L (135-145); TSH reflex Free T4 3.38 uIU/mL (0.32-4.0); Total Protein 8.3 g/dL (6.5-8.0)
[2024-08-23 14:56] LABS: Basophils Percent Auto 0.6 % (0-2); Eosinophils Absolute Auto 0.2 X10*3/uL (0.0-0.4); Eosinophils Percent Auto 4.5 % (0-4); Hemoglobin 13.2 g/dl (14.0-18.0); Imm Gran Abs Auto 0.03 X10*3/uL (0.00-0.03); Imm Gran Pct Auto 0.6 % (0.0-0.4); Lymphocytes Percent Auto 41.7 % (20-40); Mean Corpuscular HGB Conc 31.4 g/dl (31.0-36.0); Mean Corpuscular Hemoglobin 26.4 pg (27.0-33.0); Mean Platelet Volume 9.8 fL (9.4-12.4); Monocytes Absolute Auto 0.5 X10*3/uL (0.1-1.2); Monocytes Percent Auto 9.6 % (2-11); Platelet Count 325 X10*3/uL (160-400); Red Cell Distribution Width 14.6 % (11.0-16.0); White Blood Count 4.7 X10*3/uL (4.8-10.8)
--- OUTSIDE RECORDS SUMMARY | 2024-08-28 07:10 | XMS_ITS ---
Author Name [facility] Organization Unknown Results Test Name/Text Value Interpretation Date Range Source LITHIUM 0.6mmol/L Normal [id number] 0.6 - 1.2 [facility] SARS-COV-2 PCR (CEPHEID) Negative Normal [id number] [facility] RBC DISTRIBUTION WIDTH 12.8% Normal [id number] 11.6 - 14.8 [facility] AUTO NRBC % 0% Normal [id number] 0 - [address] [facility] [address] 5.410*3/uL Normal [id number] 1.4 - 6.[address] [facility] [address] 0.510*3/uL Normal [id number] 0.2 - 0.8 [facility] MCHC 32g/dL Normal [id number] 32 - 36 [facility] MCH 26.2pg Normal [id number] 26 - 34 [facility] IMMATURE GRANULOCYTE % 0.3% Normal [id number] 0 - 0.6 [facility] EOSINOPHIL % 0.1% Normal [id number] 0 - 6 [facility] [address] 010*3/uL Normal [id number] 0 - 0. 2 [facility] MCV 81.9fL Normal [id number] 80 - 100 [facility] PLATELET COUNT 97976*3/uL Normal [id number] 150 - 440 [facility] BASOPHILS % 0.3% Normal [id number] 0 - [address] [facility] [address] 1.410*3/uL Normal [id number] 0.7 - 4.[address] [facility] [address] 010*3/uL Normal [id number] 0 - 0.3 [facility] HEMATOCRIT 41.2% Normal [id number] 40 - 52 [facility] WHITE CELL COUNT 7.410*3/uL Normal [id number] 3.8 - 10. 6 [facility] RED CELL COUNT 5.0310*6/???L Normal [id number] 4.4 - 5. 9 [facility] MONOCYTE % 6.4% Normal [id number] 4 - 12 [facility] NEUTROPHIL % 73.3% Above high normal [id number] 40 - 7 0 [facility] HEMOGLOBIN 13.2g/dL Normal [id number] 13 - 18 [facility] LYMPHOCYTE % 19.6% Below low normal [id number] 20 - 50 [facility] PHOSPHORUS 3.1mg/dL Normal [id number] 2.4 - 4.8 [facility] MAGNESIUM 2.2mg/dL Normal [id number] 1.8 - 3 [facility] THYROID STIM HORMONE 0.97uIU/mL Normal [id number] 0.35 - 4.94 [facility] GYCOHEMOGLOBIN A1C 4.7% Normal [id number] 4.4 - 6. 4 [facility] FASTING? Normal [id number] [facility] CHOLESTEROL, HDL 46mg/dL Normal [id number] [facility] LDL CHOLESTEROL FRIEDWALD CALC 62mg/dL Normal [id number] [facility] TRIGLYCERIDE 27mg/dL Normal [id number] [facility] CHOLESTEROL, TOTAL 113mg/dL Normal [id number] [facility] ALT (SGPT) 16U/L Normal [id number] 8 - 39 [facility] PROTEIN TOTAL 8.1g/dL Normal [id number] 6.2 - 8.1 [facility] AST (SGOT) 24U/L Normal [id number] 17 - 35 [facility] BILIRUBIN, TOTAL 0.4mg/dL Normal [id number] 0.1 - 1.2 [facility] ALKALINE PHOSPHATASE 61U/L Normal [id number] 39 - 1 13 [facility] BILIRUBIN, DIRECT 0.2mg/dL Normal [id number] 0 - 0.5 [facility] ALBUMIN, AUTOMATED 4.9g/dL Normal [id number] 3.8 - 5. 3 [facility] CREATININE 0.8mg/dL Normal [id number] 0.6 - 1.2 [facility] POTASSIUM 4.4mmol/L Normal [id number] 3.6 - 5.1 [facility] BICARBONATE 23mmol/L Normal [id number] 23 - 32 [facility] GLOMERULAR FILTRATION RATE ML/MIN/1.73 SQ M.PREDICTED 130mL/min/1.73m *2 Normal [id number] 60 - [facility] SODIUM 139mmol/L Normal [id number] 137 - 144 [facility] CHLORIDE 107mmol/L Normal [id number] 100 - 111 [facility] CALCIUM, TOTAL 9.9mg/dL Normal [id number] 8.4 - 10.2 [facility] UREA NITROGEN 8mg/dL Normal [id number] 8 - 24 [facility] ANION GAP 9mmol/L Normal [id number] 3 - 11 [facility] GLUCOSE 103mg/dL Normal [id number] 70 - 200 [facility] CANNABINOID Positive Abnormal [id number] - [facility] OPIATES, URINE Negative Normal [id number] - [facility] COCAINE METABOLITES URINE Negative Normal [id number] - [facility] BENZODIAZEPINE, URINE Negative Normal [id number] - [facility]
== END 2024-08-23 09:48 | disposition home or self-care (01) ==
LOC: HO.CHCLDS 09:47
PROVIDERS: Visit Provider Pediatrics
DX: F31.9 Bipolar disorder, unspecified (principal)
CPT/HCPCS: 36415; 80048; 80076; 80178; 84443; 85025